=== PATIENT | male | born 1945 | race Caucasian/White ===

== ENCOUNTER 2017-04-03 14:55 | Emergency (ER) | payer MEDICARE, OTHER ==
[2017-04-03 15:33] VITALS: BP 147/95
[2017-04-03] MEDS ORDERED: Bacitracin Oint 1 GM U/D Packet TOP ONE (16:41)
--- NOTE | 2017-04-03 16:41 | EDM.PDOC ---
ED HPI GENERAL MEDICAL PROBLEM - General Chief Complaint: Laceration Stated Complaint: LEFT THUMB LACERATION Time Seen by Provider: 04/03/17 16:28 Source of Information: Reports: Patient History Limitations: Reports: No Limitations - History of Present Illness INITIAL COMMENTS - FREE TEXT/NARRATIVE: This gentleman caught his left thumb on a piece of metal shortly before arrival. He's new the cut was very small but he is taking one of the novel anticoagulants and was unable to get it to stop bleeding. Tetanus is up-to-date Left Hand Pain Score (Numeric/FACES): 2 - Related Data Allergies Allergy/AdvReac Type Severity Reaction Status Date / Time No Known Allergies Allergy Verified 04/03/17 15:40 Home Meds: Home Meds Hydrochlorothiazide 25 mg PO DAILY 10/27/14 [History] Loratadine [Claritin] 10 mg PO DAILY PRN 10/27/14 [History] Omeprazole [Prilosec] 20 mg PO DAILY 10/27/14 [History] Simvastatin [Zocor] 20 mg PO BEDTIME 10/27/14 [History] Tamsulosin [Flomax] 0.4 mg PO BEDTIME 10/27/14 [History] Topiramate 100 mg PO BID 10/27/14 [History] traZODone 100 mg PO BEDTIME 10/27/14 [History] Aspirin 81 mg PO DAILY 01/24/16 [History] Fosinopril Sodium 2.5 mg PO DAILY 01/24/16 [History] Potassium Citrate 10 meq PO TID 01/24/16 [History] Rivaroxaban [Xarelto] 20 mg PO DAILY 01/24/16 [History] Acetaminophen/oxyCODONE [Percocet 325-5 MG] 1 - 2 tab PO Q4H PRN #30 tablet 12/02 [Rx] Cholecalciferol (Vitamin D3) [Vitamin D] 5,000 unit PO DAILY 09/19/16 [History] Past Medical History HEENT History: Reports: Allergic Rhinitis, Cataract, Impaired Vision Cardiovascular History: Reports: Blood Clots/VTE/DVT, High Cholesterol, Hypertension Gastrointestinal History: Reports: GI Bleed, PUD Other Gastrointestinal History: bleeding ulcers Genitourinary History: Reports: Renal Calculus, Urinary Incontinence Musculoskeletal History: Reports: Arthritis, Back Pain, Chronic, Fracture Neurological History: Reports: Concussion, Headaches, Chronic, Head Trauma Psychiatric History: Reports: Anxiety, Depression, PTSD Endocrine/Metabolic History: Reports: Obesity/BMI 30+ Hematologic History: Reports: B12 Deficiency, Blood Transfusion(s) Oncologic (Cancer) History: Reports: Other (See Below) Other Oncologic History: Melanoma Dermatologic History: Reports: Other (See Below) Other Dermatologic History: melanoma - Infectious Disease History Infectious Disease History: Reports: Chicken Pox - Past Surgical History Head Surgeries/Procedures: Reports: None HEENT Surgical History: Reports: Adenoidectomy, Tonsillectomy, Other (See Below) GI Surgical History: Reports: Bariatric Procedure, Colonoscopy, Hernia, Inguinal Endocrine Surgical History: Reports: None Musculoskeletal Surgical History: Reports: Knee Replacement, Shoulder Replacement, Other (See Below) Other Musculoskeletal Surgeries/Procedures:: trigger point injections Oncologic Surgical History: Reports: Bone Marrow Aspiration Dermatological Surgical History: Reports: Plastic Surgical Reconstruction/Repair , Skin Graft Social & Family History - Family History Family Medical History: Noncontributory - Tobacco Use Smoking Status *Q: Never Smoker Second Hand Smoke Exposure: No - Caffeine Use Caffeine Use: Reports: Coffee - Recreational Drug Use Recreational Drug Use: No ED ROS GENERAL - Review of Systems Review Of Systems: ROS reveals no pertinent complaints other than HPI. ED EXAM, SKIN/RASH Exam: See Below Exam Limited By: No Limitations General Appearance: Alert, WD/WN, No Apparent Distress Extremities: Other (There is a small laceration actually a skin flap to the left thumb adjacent to the distal part of the thumbnail on the ulnar side of the thumb. Initially there is good hemostasis but it starts bleeding again when I examine it.) Neurological: No Motor/Sensory Deficits Course - Vital Signs Last Recorded V/S: Last Vital Signs Temp 36.3 C 04/03/17 15:38 Pulse 73 04/03/17 15:38 Resp 17 04/03/17 15:38 BP 147/95 H 04/03/17 15:38 Pulse Ox 93 L 04/03/17 15:38 - Re-Assessments/Exams Free Text/Narrative Re-Assessment/Exam: 04/03/17 16:39 The wound was cleaned some back situation ointment was applied followed by a pressure dressing Departure - Departure Time of Disposition: 16:39 Disposition: Home, Self-Care 01 Condition: Fair Clinical Impression: Laceration of left thumb - Discharge Information Referrals: Yousif Desai Sr, MD [Primary Care Provider] - Additional Instructions: Leave the dressing on for 2 days. Then you can remove it was very gently with soap and water but don't scrub it. That might start bleeding again apply a dab of antibiotic ointment and covered with a dressing. If it bleeds again then just put direct pressure on it for 30 minutes. If that doesn't stop the bleeding then come back to the ER or see your
== END 2017-04-03 17:02 | disposition home or self-care (01) ==
LOC: JP.ED 14:55
DX: S61.012A Laceration without foreign body of left thumb without damage to nail, initial encounter (principal); I10 Essential (primary) hypertension; E78.00 Pure hypercholesterolemia, unspecified; F32.9 Major depressive disorder, single episode, unspecified; Z79.01 Long term (current) use of anticoagulants; Z79.82 Long term (current) use of aspirin; Z79.899 Other long term (current) drug therapy; W45.8XXA Other foreign body or object entering through skin, initial encounter
CPT/HCPCS: 99282; 99283

== ENCOUNTER 2017-06-20 06:16 | Day surgery (SDC) | payer MEDICARE, OTHER ==
[2017-06-20] MEDS ORDERED: Midazolam 1 MG/ML 2 ML SDV ONE (07:16)
[2017-06-20] MEDS ORDERED: Propofol 200 MG/20 ML SDV ONE (07:16)
[2017-06-20] MEDS ORDERED: fentaNYL 100 MCG/2 ML SDV ONE (07:16)
[2017-06-20] MEDS ORDERED: Sodium Chloride 0.9% 1,000 ML IV SCH ×2 (07:30)
[2017-06-20 09:40] VITALS: BP 110/69
--- NOTE | 2017-06-20 11:09 | PROC ---
DATE OF PROCEDURE: 06/20/2017 INDICATION: Jeffy is a 72-year-old male who comes in for a colonoscopy. He does have a history of polyps in the past and has a strong family history of colonic cancer. PROCEDURE IN DETAIL: The risks and benefits were explained to the patient and was taken to the OR. Anesthesia was given by nurse strategic communications specialist. During the procedure, we used 2 mg of Versed, 1 mL of fentanyl and 200 mcg of propofol. The Olympus 180L scope was used. With a gloved finger, the rectum was examined and the prostate was a grade 3/6, symmetrical, and soft. The tube was placed into the rectum and advanced under direct vision. There was a borderline prep but we did get adequate observation throughout the entire colon. We did get to the cecum. Upon retraction of the tube, we noted a small polyp right by the hepatic flexure. This was biopsied. We got good observation of the rest of the colon. No obvious abnormality was known. The tube was removed. The patient tolerated the procedure well. PREOPERATIVE DIAGNOSES: History of polyps, family history of cancer. POSTOPERATIVE DIAGNOSIS: A small polyp noted by the hepatic flexure. Biopsy was done. Routine screening should be done for this gentleman every 3-5 years because of his history and his family history. Yousif Desai MD /[id number]
== END 2017-06-20 09:42 | disposition home or self-care (01) ==
LOC: JP.SDS 06:16
PROVIDERS: ATTEND Internal Medicine
DX: Z12.11 Encounter for screening for malignant neoplasm of colon (principal); D12.3 Benign neoplasm of transverse colon; I25.10 Atherosclerotic heart disease of native coronary artery without angina pectoris; I10 Essential (primary) hypertension; F41.9 Anxiety disorder, unspecified; Z86.010 Personal history of colon polyps; Z80.0 Family history of malignant neoplasm of digestive organs
CPT/HCPCS: 45380; 88305; J2250; J2704; J3010; J7040

== ENCOUNTER 2018-05-27 05:22 | Day surgery (SDC) | payer MEDICARE, OTHER ==
[2018-05-27] MEDS ORDERED: Acetaminophen 500 MG Tab PO ONE (06:00)
[2018-05-27] MEDS ORDERED: ceFAZolin 2 GM in Premix Bag 1 BAG IV ONE (06:00)
[2018-05-27] MEDS: Dextrose 5%-Lactated Ringers 1,000 ML IV SCH ×3 (06:13→23:09)
[2018-05-27] MEDS ORDERED: Lidocaine 1% with EPINEPHrine 1:100,000 50 ML MDV ONE (06:34)
[2018-05-27] MEDS ORDERED: Bupivacaine 0.5% 30 ML SDV ONE (06:35)
[2018-05-27] MEDS ORDERED: fentaNYL 250 MCG/5 ML SDV ONE (07:08)
[2018-05-27] MEDS ORDERED: Ondansetron 4 MG/2 ML SDV ONE (07:09)
[2018-05-27] MEDS ORDERED: Neostigmine Methylsulfate 1 MG/ML 5 ML Syringe ONE (07:09)
[2018-05-27] MEDS ORDERED: Propofol 200 MG/20 ML SDV ONE (07:09)
[2018-05-27] MEDS ORDERED: Dexamethasone 4 MG/ML SDV ONE (07:09)
[2018-05-27] MEDS ORDERED: Rocuronium 50 MG/5 ML Vial ONE (07:09)
[2018-05-27] MEDS ORDERED: Glycopyrrolate 0.2 MG/ML 5 ML MDV ONE (07:09)
[2018-05-27] MEDS ORDERED: Bupivacaine 0.5%/EPINEPHrine 1:200,000 50 ML MDV ONE (07:33)
[2018-05-27] MEDS ORDERED: ePHEDrine 50 MG/ML SDV ONE (07:44)
[2018-05-27] MEDS ORDERED: Ketorolac 60 MG/2 ML SDV ONE (08:14)
[2018-05-27] MEDS ORDERED: Ondansetron 4 MG/2 ML SDV IVPUSH PRN (09:34)
[2018-05-27] MEDS ORDERED: traZODone 50 MG Tab PO PRN (09:36)
[2018-05-27] MEDS ORDERED: Loratadine 10 MG Tab PO PRN (09:37)
[2018-05-27] MEDS ORDERED: Acetaminophen/oxyCODONE 325-5 MG Tab PO PRN (09:39)
[2018-05-27] MEDS ORDERED: Rivaroxaban 10 MG Tab PO ONE (13:00)
[2018-05-27] MEDS: ceFAZolin 2 GM in Premix Bag 1 BAG IV SCH ×2 (13:41→21:35)
[2018-05-27] MEDS ORDERED: Tamsulosin 0.4 MG Cap.ER PO SCH (21:00)
[2018-05-27] MEDS ORDERED: Escitalopram 10 MG Tab PO SCH (21:00)
[2018-05-27] MEDS ORDERED: Simvastatin 20 MG Tab PO SCH (21:00)
[2018-05-27] MEDS: Topiramate 100 MG Tab PO SCH (21:34)
[2018-05-28] MEDS: ceFAZolin 2 GM in Premix Bag 1 BAG IV SCH (06:04)
[2018-05-28 07:24] VITALS: BP 122/69
[2018-05-28] MEDS ORDERED: Pantoprazole 40 MG Tab.CR PO SCH (07:30)
[2018-05-28] MEDS: Topiramate 100 MG Tab PO SCH (08:55)
[2018-05-28] MEDS ORDERED: FOSINOPRIL 10 MG PO SCH (09:00)
[2018-05-28] MEDS ORDERED: Hydrochlorothiazide 25 MG Tab PO SCH (09:00)
--- NOTE | 2018-05-28 09:19 | DISCH ---
ADMISSION DIAGNOSES: 1. Left inguinal hernia. 2. History of deep vein thrombosis. 3. Degenerative arthritis. 4. Chronic renal failure. 5. Essential hypertension. DISCHARGE DIAGNOSES: Exploration of left groin with repair of recurrent incarcerated incisional hernia with mesh, repair of recurrent trocar hernia with mesh, and division of left ilioinguinal nerve for recurrent incarcerated incisional hernia, adjacent and previous mesh plug at panniculectomy site and incarcerated left recurrent incisional hernia, ilioinguinal nerve at site of scar entrapment. Date of surgery: 05/27/2018. Surgeon: Karel Holder MD. HISTORY: Jeffy Castro is a 73-year-old male with recurrent right inguinal hernia. After preoperative evaluation and discussion of possible risks and possible complications, he wished to proceed with surgical procedure. HOSPITAL COURSE: Jeffy had his surgery on 05/27/2018. He had no operative complications. On postoperative day #1, he was ready to be discharged to home. Vital signs stable. Pain was managed on Tylenol. He refused anything stronger for pain as in Percocet. Activity was good. Vital signs stable. REVIEW OF SYSTEMS: Remainder of review of systems negative for any pertinent positives and negatives. OBJECTIVE: GENERAL: Jeffy Castro is a 73-year-old male. VITAL SIGNS: Height is 6 feet, weight is 270, TPR is 97.4, 66, 18, blood pressure 122/69. HEENT: Negative. NECK: Supple. HEART: Regular rate and rhythm. LUNGS: Clear. ABDOMEN: Dressings dry and intact. Abdominal binder is on. EXTREMITIES: Without peripheral edema. DISPOSITION: Discharged to home. CONDITION: Stable and improving. FOLLOWUP: Followup appointment with Karel Holder MD on 06/04/2018 at 8:00 a.m. [facility] an [facility] at 7:45, so may be a little late. HOME MEDICATIONS: He is to continue his home medications. No new prescriptions were prescribed. Declined Percocet, which was ordered for pain. He is to resume home medications; 1. Aspirin 81 mg daily. 2. Calcium citrate with vitamin D one oral 4 times a day. 3. Lexapro 10 mg oral at bedtime. 4. Fosinopril sodium 2.5 mg oral daily. 5. Hydrochlorothiazide 25 mg oral daily. 6. Claritin 10 mg oral daily. 7. Omeprazole 20 mg oral daily. 8. Potassium citrate 20 mEq oral 3 times a day. 9. Xarelto 20 mg oral daily. 10.Zocor 20 mg oral at bedtime. 11.Flomax 0.4 mg oral at bedtime. 12.Topiramate 100 mg oral twice daily. 13.Trazodone 100 mg at bedtime. DIET: Usual diet as tolerated. Drink 8 to 10 glasses of water a day. ACTIVITY: As tolerated. No lifting greater than 10 pounds for 6 weeks. Driving: Do not drive for 1 week and while on pain medication. Shower/bathing, may shower. DISCHARGE INSTRUCTIONS: Notify provider if any fever, increased pain, nausea, or vomiting. Keep site clean and dry. Wound incision; take dressing off on , 05/29/2018. Recommend wearing athletic supporter to prevent dependent swelling. SPECIAL INSTRUCTIONS: Use incentive spirometer 10 times every hour while awake.
--- NOTE | 2018-06-02 14:00 | OR ---
DATE OF PROCEDURE: 05/27/2018 PREOPERATIVE DIAGNOSIS: Recurrent left inguinal hernia. POSTOPERATIVE DIAGNOSES: 1. Recurrent incarcerated left inguinal hernia. 2. Recurrent incarcerated incisional hernia. 3. Ilioinguinal nerve at risk for scar entrapment and postoperative chronic pain. OPERATIVE PROCEDURES: Exploration of left groin with: 1. Repair of recurrent incarcerated incisional hernia with mesh (07554, [id number]). 2. Repair of recurrent incarcerated inguinal hernia with mesh ([id number]). 3. Division of the left ilioinguinal nerve ([id number]). ANESTHESIA: General. REIMBURSEMENT COUNSELOR: Germaine Justice PA-C. INDICATIONS FOR PROCEDURE: The patient presents with onset of an inguinal hernia on the left side. This appears by history to have been previously repaired. The patient appeared to have two defects; one is on the area of the inguinal floor and other one somewhat superior to that and slightly lateral to the inguinal floor along the previous Pfannenstiel incision suggestive of a possible separate incisional hernia as well. The plan is to proceed with a left groin exploration and repair of the hernias with mesh as indicated. Potential risks including bleeding, infection, recurrence of the hernia, problems with the mesh becoming infected, chronic pain following the hernia repair and such were all reviewed, and the patient wishes to proceed. DETAILS OF PROCEDURE: The patient was taken to operating room where he was placed in a supine position. After general endotracheal anesthesia was induced, the abdomen and groin areas were prepped and draped. The previous left inguinal incision was then reused and carried down through the skin and subcutaneous tissue and through the external oblique aponeurosis. The cord structures were then identified and dissected free along the area of the inguinal floor. As one dissected in this area, the patient appeared to have a direct inguinal hernia medially, which had an incarcerated component consisting of some lateral fat prolapsing along with the hernia sac in the direction somewhat over the area of Patricio ligament. Further dissection revealed a separate hernia superior to the internal ring along the area of the Pfannenstiel incision consistent with a recurrence of the hernia in that area as well. There was mesh placed in both locations previously. At this point, transversalis fascia over the medial aspect was divided and this allowed reduction of the inguinal hernia. An extra large mesh plug was then placed into that defect and then affixed to the Patricio ligament with titanium tacking screws inferiorly and to the underside of the conjoined tendon medially, superiorly, and inferiorly with horizontal mattress sutures of 0 Vicryl stitch. The conjoined tendon was then sutured down to the shelving portion of the inguinal ligament with a running 0 Vicryl stitch as well to the point where the internal ring was tightened up just to the side allowing the comfortable passage of the cord structures. The defect superior to the internal ring consistent with an incisional hernia was then similarly divided at the transversalis fascia level. This contained a small amount of omentum prolapsing into it, which was then reduced, and into this defect, a medium mesh plug was placed. This is a fairly small hernia with a small tongue above the omentum prolapsing into the hernia. This was affixed circumferentially with horizontal mattress sutures of 0 Vicryl stitch as well, and at that point, no further problems noted. The ilioinguinal nerve was noted to course across the area of the inguinal floor and the flat portion of mesh plug system was placed there after division of the nerve in the far lateral aspect of the area of dissection to minimize chances of postop neuropathic pain. The medial aspect of the flat portion of the mesh plug system was affixed with titanium tacking screw to the pubic tubercle and sutured lateral to the cord structure with 3-0 Vicryl stitch. The external oblique aponeurosis was approximated with 3-0 Vicryl stitch as was subcutaneous tissue and the skin closed with coral. The area was anesthetized with 0.5% Marcaine and dressing applied. The patient was taken to the recovery room in satisfactory condition. There were no other complications. Physician melter assistant, Germaine Justice PA-C, played an essential role in assisting in this case, helping to position the patient, retract structures as needed, as well as suturing and cutting suture as indicated. Her presence improved patient safety and decreased the operative time. Karel Holder MD /[id number]
== END 2018-05-28 11:42 | disposition home or self-care (01) ==
LOC: JP.SDS 05:22 → JP.MS 08:45 → JP.SDS 05-28 11:42
PROVIDERS: ATTEND Surgery
DX: K40.31 Unilateral inguinal hernia, with obstruction, without gangrene, recurrent (principal); K43.0 Incisional hernia with obstruction, without gangrene; I12.9 Hypertensive chronic kidney disease with stage 1 through stage 4 chronic kidney disease, or unspecified chronic kidney disease; N18.9 Chronic kidney disease, unspecified; E66.9 Obesity, unspecified; E78.5 Hyperlipidemia, unspecified; G47.33 Obstructive sleep apnea (adult) (pediatric); Z99.89 Dependence on other enabling machines and devices; I70.213 Atherosclerosis of native arteries of extremities with intermittent claudication, bilateral legs; F32.9 Major depressive disorder, single episode, unspecified; Z79.82 Long term (current) use of aspirin; Z79.01 Long term (current) use of anticoagulants; Z79.899 Other long term (current) drug therapy
CPT/HCPCS: 49521; 49566; 49568; 64772; 88302; 94762; A9270; C1781; J0690; J1100; J1885; J2405; J2704; J2710; J3010; J3490; J7042

== ENCOUNTER 2019-05-10 18:39 | Emergency (ER) | payer MEDICARE, OTHER ==
--- NOTE | 2019-05-10 18:56 | EDM.PDOC ---
ED HPI GENERAL MEDICAL PROBLEM - General Chief Complaint: Lower Extremity Injury/Pain Stated Complaint: FELL HURT KNEES Time Seen by Provider: 05/10/19 18:54 Source of Information: Reports: Patient History Limitations: Reports: No Limitations - History of Present Illness INITIAL COMMENTS - FREE TEXT/NARRATIVE: pt tripped on his shoe laces and he injured his knee. He has ptsd and normally has a service dog. He had to put the dog down 3 weeks ago. He really does not like to be in closed spaces and will try to provide a larger room and a open door. Onset: Today, Sudden Duration: Hour(s): Location: Reports: Upper Extremity, Left, Lower Extremity, Right Associated Symptoms: Reports: No Other Symptoms Right Knee Pain Score (Numeric/FACES): 6 - Related Data Allergies Allergy/AdvReac Type Severity Reaction Status Date / Time No Known Allergies Allergy Verified 05/10/19 19:12 Home Meds: Home Meds Hydrochlorothiazide 25 mg PO DAILY 10/27/14 [History] Loratadine [Claritin] 10 mg PO DAILY PRN 10/27/14 [History] Omeprazole [Prilosec] 20 mg PO DAILY 10/27/14 [History] Simvastatin [Zocor] 20 mg PO BEDTIME 10/27/14 [History] Tamsulosin [Flomax] 0.4 mg PO BEDTIME 10/27/14 [History] Topiramate 100 mg PO BID 10/27/14 [History] traZODone 100 mg PO BEDTIME PRN 10/27/14 [History] Aspirin 81 mg PO DAILY 01/24/16 [History] Potassium Citrate 20 meq PO TID 01/24/16 [History] Rivaroxaban [Xarelto] 20 mg PO DAILY 01/24/16 [History] Cholecalciferol (Vitamin D3) [Vitamin D] 2,000 unit PO DAILY 09/19/16 [History] Calcium Citrate/Vitamin D3 [Calcium Citrate + D] 1 tab PO QID 06/18/17 [History] Escitalopram [Lexapro] 10 mg PO BEDTIME 05/14/18 [History] Past Medical History HEENT History: Reports: Allergic Rhinitis, Cataract, Impaired Vision Cardiovascular History: Reports: Blood Clots/VTE/DVT, High Cholesterol, Hypertension, PA Respiratory History: Reports: Sleep Apnea Gastrointestinal History: Reports: Colon Polyp, GI Bleed, Hiatal Hernia, PUD Other Gastrointestinal History: bleeding ulcers Genitourinary History: Reports: Renal Calculus, Urinary Incontinence, Other ( See Below) Other Genitourinary History: prostate ca Musculoskeletal History: Reports: Arthritis, Back Pain, Chronic, Fracture Neurological History: Reports: Concussion, Headaches, Chronic, Head Trauma Psychiatric History: Reports: Anxiety, Depression, PTSD Endocrine/Metabolic History: Reports: Obesity/BMI 30+ Hematologic History: Reports: B12 Deficiency, Blood Transfusion(s) Oncologic (Cancer) History: Reports: Prostate, Other (See Below) Other Oncologic History: Melanoma Dermatologic History: Reports: Other (See Below) Other Dermatologic History: pt. thinks has hx of melanoma - Infectious Disease History Infectious Disease History: Reports: Chicken Pox, Measles - Past Surgical History Head Surgeries/Procedures: Reports: None HEENT Surgical History: Reports: Adenoidectomy, Tonsillectomy, Other (See Below) Cardiovascular Surgical History: Reports: None Respiratory Surgical History: Reports: None GI Surgical History: Reports: Bariatric Procedure, Colonoscopy, EGD, Hernia, Inguinal, Neil Fundoplication Male Surgical History: Reports: Lithotripsy ([facility]) Endocrine Surgical History: Reports: None Neurological Surgical History: Reports: None Musculoskeletal Surgical History: Reports: Knee Replacement, Shoulder Replacement, Other (See Below) Other Musculoskeletal Surgeries/Procedures:: trigger point injections Oncologic Surgical History: Reports: Bone Marrow Aspiration Dermatological Surgical History: Reports: Plastic Surgical Reconstruction/Repair , Skin Graft Social & Family History - Family History Family Medical History: Noncontributory - Caffeine Use Caffeine Use: Reports: Coffee Review of Systems - Review of Systems Review Of Systems: See Below Constitutional: Reports: No Symptoms Eyes: Reports: No Symptoms Ears: Reports: No Symptoms Nose: Reports: No Symptoms Mouth/Throat: Reports: No Symptoms Respiratory: Reports: No Symptoms Cardiovascular: Reports: No Symptoms GI/Abdominal: Reports: No Symptoms Genitourinary: Reports: No Symptoms Musculoskeletal: Reports: Other (pt has pain in the rt knee and there appears to be some swelling. He has no discoloration. He has some tenderness in the left shoulder but he has no swelling. ) Skin: Reports: No Symptoms Neurological: Reports: No Symptoms Psychiatric: Reports: Anxiety ED EXAM, GENERAL - Physical Exam Exam: See Below Free Text/Narrative:: pt arrived having pain in his rt knee. As he has been here longer it has gotten better. He does not wish any pain meds. Exam Limited By: No Limitations General Appearance: Alert, Anxious, Mild Distress, Other (pupils are equal and reactive. ) Ears: Normal TMs Nose: Normal Inspection Throat/Mouth: Normal Inspection Head: Atraumatic Neck: Normal Inspection Respiratory/Chest: No Respiratory Distress Cardiovascular: Regular Rate, Rhythm Extremities: Other (pt has soft tissue swelling. he has no fractures on xray. The total joint looks good. He does have some soft tissue swelling. ) Course - Vital Signs Last Recorded V/S: Last Vital Signs Temp 36.7 C 05/10/19 19:02 Pulse 78 05/10/19 19:02 Resp 14 05/10/19 19:02 BP 129/68 05/10/19 19:02 Pulse Ox 95 05/10/19 19:02 - Re-Assessments/Exams Free Text/Narrative Re-Assessment/Exam: 05/10/19 20:38 xray was done of the knee which does not reveal any fractes. The componets of the total knee appear to be in place. He is having pain but it is better at this time. He was offer pain meds but he does not want to use these. 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 He is on xarelto. He is willing to ice pack the knee. Departure - Departure Time of Disposition: 20:40 Disposition: Home, Self-Care 01 Condition: Fair Clinical Impression: Contusion of right knee, Sprain of left shoulder - Discharge Information Instructions: Contusion Referrals: Yousif Desai Sr, MD [Primary Care Provider] - Forms: ED Department Discharge Care Plan Goals: cool pack to the lrft knee rigorously. He can use tylenol for pain, Pt should cool pack the left shoulder and do range of motion. pt does have some soft tissue swelling. Sepsis Event Note - Focused Exam Date Exam was Performed: 05/13/19 Time Exam was Performed: 07:45
[2019-05-10 19:02] VITALS: BP 129/68; PULSE 78
--- NOTE | 2019-05-10 20:29 | CRLCR ---
Indication: Pain and swelling right knee. Technique: Right knee five views. Comparison: 09/24/2014. Findings: Right knee arthroplasty is unchanged in appearance. No evidence of acute fracture or hardware complication. No additional osseous abnormality. Calcifications in the region of the quadriceps tendon are unchanged. There is new prepatellar soft tissue swelling. No soft tissue gas or radiopaque foreign body evident. Impression: 1. No evidence of acute fracture or hardware complication. 2. New prepatellar soft tissue swelling may be infectious or inflammatory in the appropriate clinical setting. Dictated by Cesar Blanca MD @ May 10 2019 8:25PM Signed by Dr. Cesar Blanca @ May 10 2019 8:27PM
== END 2019-05-10 21:00 | disposition home or self-care (01) ==
LOC: JP.ED 18:39
DX: S43.402A Unspecified sprain of left shoulder joint, initial encounter (principal); S80.01XA Contusion of right knee, initial encounter; I10 Essential (primary) hypertension; I25.2 Old myocardial infarction; E78.00 Pure hypercholesterolemia, unspecified; E66.9 Obesity, unspecified; F32.9 Major depressive disorder, single episode, unspecified; Z79.899 Other long term (current) drug therapy; Z68.36 Body mass index [BMI] 36.0-36.9, adult; Z85.46 Personal history of malignant neoplasm of prostate; Z85.820 Personal history of malignant melanoma of skin; Z79.82 Long term (current) use of aspirin; W18.40XA Slipping, tripping and stumbling without falling, unspecified, initial encounter
CPT/HCPCS: 73564-RT; 99283; 99283-25

== ENCOUNTER 2019-06-20 12:12 | Emergency (ER) | payer MEDICARE, OTHER ==
--- NOTE | 2019-06-20 13:25 | EDM.PDOC ---
ED HPI GENERAL MEDICAL PROBLEM - General Chief Complaint: Lower Extremity Injury/Pain Stated Complaint: PAIN IN LOWER LT LEG Time Seen by Provider: 06/20/19 12:50 Source of Information: Reports: Patient History Limitations: Reports: No Limitations - History of Present Illness INITIAL COMMENTS - FREE TEXT/NARRATIVE: 74-year-old male with lower left leg pain. He has a worsening hematoma on the lateral aspect of the lower leg over the [place], and he wanted it checked. He saw orthopedics 2 days ago for an issue of his other leg, and was told that the bruised area should be improving or should be checked. It is more painful today and he thinks more swollen and tight as well, it was painful to get his compression stockings on today. It is also painful with walking. Onset: Gradual Duration: Day(s): (Swelling, pain and bruising over the past 3 to 4 days) Location: Reports: Lower Extremity, Left Quality: Reports: Burning, Pressure, Throbbing Worsens with: Reports: Other (Weightbearing or palpation of the bruised area), Movement Left Leg Pain Score (Numeric/FACES): 9 - Related Data Allergies Allergy/AdvReac Type Severity Reaction Status Date / Time No Known Allergies Allergy Verified 06/20/19 12:47 Home Meds: Home Meds Hydrochlorothiazide 25 mg PO DAILY 10/27/14 [History] Loratadine [Claritin] 10 mg PO DAILY PRN 10/27/14 [History] Omeprazole [Prilosec] 20 mg PO DAILY 10/27/14 [History] Simvastatin [Zocor] 20 mg PO BEDTIME 10/27/14 [History] Tamsulosin [Flomax] 0.4 mg PO BEDTIME 10/27/14 [History] Topiramate 100 mg PO BID 10/27/14 [History] traZODone 100 mg PO BEDTIME PRN 10/27/14 [History] Aspirin 81 mg PO BEDTIME 01/24/16 [History] Potassium Citrate 20 meq PO TID 01/24/16 [History] Rivaroxaban [Xarelto] 20 mg PO DAILY 01/24/16 [History] Cholecalciferol (Vitamin D3) [Vitamin D] 2,000 unit PO DAILY 09/19/16 [History] Calcium Citrate/Vitamin D3 [Calcium Citrate + D] 1 tab PO QID 06/18/17 [History] Escitalopram [Lexapro] 10 mg PO BEDTIME 05/14/18 [History] Past Medical History HEENT History: Reports: Allergic Rhinitis, Cataract, Impaired Vision Cardiovascular History: Reports: Blood Clots/VTE/DVT, High Cholesterol, Hypertension, [place] Other Cardiovascular History: Heart monitor implanted Respiratory History: Reports: Sleep Apnea Gastrointestinal History: Reports: Colon Polyp, GI Bleed, Hiatal Hernia, PUD Other Gastrointestinal History: bleeding ulcers Genitourinary History: Reports: Renal Calculus, Urinary Incontinence, Other ( See Below) Other Genitourinary History: prostate ca Musculoskeletal History: Reports: Arthritis, Back Pain, Chronic, Fracture Other Musculoskeletal History: R knee pain Neurological History: Reports: Concussion, Headaches, Chronic, Head Trauma Other Neuro History: "PTSD Stroke" Psychiatric History: Reports: Anxiety, Depression, PTSD Endocrine/Metabolic History: Reports: Obesity/BMI 30+ Hematologic History: Reports: B12 Deficiency, Blood Transfusion(s) Oncologic (Cancer) History: Reports: Prostate, Other (See Below) Other Oncologic History: Melanoma Dermatologic History: Reports: Other (See Below) Other Dermatologic History: pt. thinks has hx of melanoma - Infectious Disease History Infectious Disease History: Reports: Chicken Pox, Measles - Past Surgical History Head Surgeries/Procedures: Reports: None HEENT Surgical History: Reports: Adenoidectomy, Tonsillectomy GI Surgical History: Reports: Bariatric Procedure, Colonoscopy, EGD, Hernia, Inguinal, Neil Fundoplication Male Surgical History: Reports: Lithotripsy (ESWL) Musculoskeletal Surgical History: Reports: Knee Replacement, Shoulder Replacement, Other (See Below) Other Musculoskeletal Surgeries/Procedures:: trigger point injections Oncologic Surgical History: Reports: Bone Marrow Aspiration Dermatological Surgical History: Reports: Plastic Surgical Reconstruction/Repair , Skin Graft Social & Family History - Family History Family Medical History: Noncontributory - Tobacco Use Smoking Status *Q: Never Smoker - Caffeine Use Caffeine Use: Reports: Coffee - Recreational Drug Use Recreational Drug Use: No Review of Systems - Review of Systems Review Of Systems: See Below Constitutional: Denies: Fever Respiratory: Denies: Shortness of Breath, Cough Cardiovascular: Denies: Chest Pain Genitourinary: Reports: No Symptoms Neurological: Denies: Headache Psychiatric: Reports: No Symptoms ED EXAM, GENERAL - Physical Exam Exam: See Below Exam Limited By: No Limitations General Appearance: Alert, No Apparent Distress Head: Atraumatic Respiratory/Chest: No Respiratory Distress GI/Abdominal: Non-Tender Extremities: Other (Exam of the lower extremities reveals diffuse bilateral pitting edema, however the left lower leg over the lateral marina has a 5 x 5 cm raised, bluish, bruised slightly fluctuant but tight hematoma formation. There is some surrounding warmth and erythema.) Course - Vital Signs Last Recorded V/S: Last Vital Signs Temp 97.1 F 06/20/19 12:44 Pulse 60 06/20/19 12:44 Resp 16 06/20/19 12:44 BP 142/74 H 06/20/19 12:44 Pulse Ox 98 06/20/19 12:44 - Re-Assessments/Exams Free Text/Narrative Re-Assessment/Exam: 06/20/19 14:34 Discussed this with surgery, and evacuation of the hematoma can be planned for 2 to 3 days if not improving. 6 inch Silvio wraps were applied to the lower extremity, patient was encouraged to elevate the leg, keep pressure with Silvio wraps, and was placed on cephalexin 500 mg 3 times a day for 5 days. He will return tomorrow if worsening despite treatment, otherwise recheck with Dr. Desai on Saturday to discuss whether surgical consultation will be necessary at that time. Departure - Departure Time of Disposition: 14:00 Disposition: Home, Self-Care Clinical Impression: Hematoma of left lower extremity Qualifiers: Encounter type: initial encounter Qualified Code(s): S80.12XA - Contusion of left lower leg, initial encounter - Discharge Information Instructions: Hematoma, [id number] Referrals: Yousif Desai Sr, MD [Primary Care Provider] - Forms: ED Department Discharge Care Plan Goals: Continue pressure with an Silvio wrap, take antibiotics as prescribed and elevate leg when able. Recheck on Saturday if not improving satisfactorily. Sepsis Event Note - Evaluation Sepsis Screening Result: No Definite Risk - Focused Exam Vital Signs: Vital Signs Temp Pulse Resp BP Pulse Ox 06/20/19 12:44 97.1 F 60 16 142/74 H 98 Date Exam was Performed: 06/20/19 Time Exam was Performed: 14:31
== END 2019-06-20 14:00 | disposition home or self-care (01) ==
LOC: JP.ED 12:12
CPT/HCPCS: 99282; 99283

== ENCOUNTER 2020-05-09 07:37 | Emergency (ER) | payer MEDICARE, OTHER ==
[2020-05-09 08:09] VITALS: BP 129/68; PULSE 60
--- NOTE | 2020-05-09 08:12 | EDM.PDOC ---
ED HPI GENERAL MEDICAL PROBLEM - General Chief Complaint: Lower Extremity Injury/Pain Stated Complaint: KNEE PAIN Time Seen by Provider: 05/09/20 08:10 Source of Information: Reports: Patient History Limitations: Reports: No Limitations - History of Present Illness INITIAL COMMENTS - FREE TEXT/NARRATIVE: 75-year-old male with a history of bilateral total knee replacement, was out walking his dog this morning when he heard a crack and started having significant pain in the left knee. He had several other episodes of pain over the past 4 days but this 1 was the most intense, it is painful to bear weight or lift the leg. He has not fallen. He has developed bruising along the inside of the knee. Onset: Sudden (About 1 hour ago was the crack and increased pain, bruising for the last 3 to 4 days) Location: Reports: Lower Extremity, Left Left Knee Pain Score (Numeric/FACES): 8 - Related Data Allergies Allergy/AdvReac Type Severity Reaction Status Date / Time No Known Allergies Allergy Verified 05/09/20 07:46 Home Meds: Home Meds Loratadine [Claritin] 10 mg PO DAILY PRN 10/27/14 [History] Omeprazole [Prilosec] 20 mg PO DAILY 10/27/14 [History] Simvastatin [Zocor] 20 mg PO BEDTIME 10/27/14 [History] Tamsulosin [Flomax] 0.4 mg PO BEDTIME 10/27/14 [History] Topiramate 100 mg PO BID 10/27/14 [History] traZODone 50 mg PO BEDTIME PRN 10/27/14 [History] Aspirin 81 mg PO BEDTIME 01/24/16 [History] Potassium Citrate 20 meq PO TID 01/24/16 [History] Rivaroxaban [Xarelto] 20 mg PO DAILY 01/24/16 [History] Calcium Citrate/Vitamin D3 [Calcium Citrate + D] 1 tab PO QID 06/18/17 [History] Escitalopram [Lexapro] 20 mg PO BEDTIME 05/14/18 [History] Cyanocobalamin (Vitamin B-12) [Vitamin B-12] 1,000 mcg SL DAILY 02/04/20 [History] Ferrous Gluconate [Iron] 65 mg PO DAILY 05/09/20 [History] Past Medical History HEENT History: Reports: Allergic Rhinitis, Cataract, Impaired Vision Cardiovascular History: Reports: Blood Clots/VTE/DVT, High Cholesterol, Hypertension, [place] Other Cardiovascular History: Heart monitor implanted Respiratory History: Reports: Sleep Apnea Gastrointestinal History: Reports: Colon Polyp, GI Bleed, Hiatal Hernia, PUD Other Gastrointestinal History: bleeding ulcers Genitourinary History: Reports: Renal Calculus, Urinary Incontinence, Other (See Below) Other Genitourinary History: prostate ca Musculoskeletal History: Reports: Arthritis, Back Pain, Chronic, Fracture, Other (See Below) Other Musculoskeletal History: R knee pain. left knee pain. bilateral shoulder pain. states knees would buckle in PT. bilat leg weakness Neurological History: Reports: Concussion, Headaches, Chronic, Head Trauma Other Neuro History: "PTSD Stroke" Psychiatric History: Reports: Anxiety, Depression, PTSD Endocrine/Metabolic History: Reports: Obesity/BMI 30+ Hematologic History: Reports: B12 Deficiency, Blood Transfusion(s) Oncologic (Cancer) History: Reports: Prostate, Other (See Below) Other Oncologic History: Melanoma Dermatologic History: Reports: Other (See Below) Other Dermatologic History: pt. thinks has hx of melanoma - Infectious Disease History Infectious Disease History: Reports: Chicken Pox, Measles - Past Surgical History Head Surgeries/Procedures: Reports: None HEENT Surgical History: Reports: Adenoidectomy, Tonsillectomy Cardiovascular Surgical History: Reports: None Respiratory Surgical History: Reports: None GI Surgical History: Reports: Bariatric Procedure, Colonoscopy, EGD, Hernia, Inguinal, Neil Fundoplication Male Surgical History: Reports: Lithotripsy (ESWL) Endocrine Surgical History: Reports: None Neurological Surgical History: Reports: None Oncologic Surgical History: Reports: Bone Marrow Aspiration Dermatological Surgical History: Reports: Plastic Surgical Reconstruction/Repair, Skin Graft Social & Family History - Family History Family Medical History: No Pertinent Family History - Caffeine Use Caffeine Use: Reports: None Review of Systems - Review of Systems Review Of Systems: See Below Constitutional: Denies: Fever Respiratory: Reports: No Symptoms Cardiovascular: Reports: No Symptoms GI/Abdominal: Denies: Nausea, Vomiting Skin: Reports: Bruising Neurological: Denies: Headache, Weakness Psychiatric: Reports: Other (Severe PTSD) ED EXAM, GENERAL - Physical Exam Exam: See Below Exam Limited By: No Limitations General Appearance: Alert, No Apparent Distress (Fairly comfortable while lying supine) Respiratory/Chest: No Respiratory Distress Extremities: Other (Lower extremities are examined, there is no swelling around the left knee compared to the right but there is bruising along the medial distal thigh and knee. He is very point tender to palpation just above the knee especially laterally, with increased pain with valgus stress to the knee.) Neurological: Alert, Oriented Skin Exam: Other (Bruising as described above) Course - Vital Signs Last Recorded V/S: Last Vital Signs Temp 97.6 F 05/09/20 08:08 Pulse 60 05/09/20 08:08 Resp 16 05/09/20 08:08 BP 129/68 05/09/20 08:08 Pulse Ox 96 05/09/20 08:08 - Re-Assessments/Exams Free Text/Narrative Re-Assessment/Exam: 05/09/20 08:33 A left knee x-ray was obtained. 05/09/20 08:50 X-ray shows the total knee in its proper position, no acute bony injury seen. A 6 inch Silvio wrap was applied to the knee, he was given 15 tramadol for extra pain control and orthopedics will be consulted to recheck the patient later this week if possible. He was able to bear weight and pivot on his leg but it continues to be very painful. Departure - Departure Time of Disposition: 09:06 Disposition: Home, Self-Care 01 Clinical Impression: Acute pain of left knee - Discharge Information Instructions: Acute Knee Pain, Adult Referrals: Yousif Desai Sr, MD [Primary Care Provider] - Forms: ED Department Discharge Care Plan Goals: Wear Silvio wrap on the knee for support, continue your regular medications and add tramadol for extra pain control if needed. I will ask the orthopedic clinic to call you with a recheck appointment time. Sepsis Event Note (ED) - Evaluation Sepsis Screening Result: No Definite Risk - Focused Exam Vital Signs: Vital Signs Temp Pulse Resp BP Pulse Ox 05/09/20 08:08 97.6 F 60 16 129/68 96
--- NOTE | 2020-05-09 11:19 | CR ---
Knee 3V Lt CLINICAL HISTORY: Pain FINDINGS: There is a 3 component total knee arthroplasty. Components appear well seated. There is a very tiny linear lucency through the medial tibial plateau just below the medial margin. This is of doubtful significance. Impression: Minimal linear lucency along the medial aspect of the tibial plateau. No this is of doubtful significance a repeat study within the should be performed if clinical symptomatology persists or worsens
== END 2020-05-09 09:06 | disposition home or self-care (01) ==
LOC: JP.ED 07:37
DX: M25.562 Pain in left knee (principal); I10 Essential (primary) hypertension; I25.2 Old myocardial infarction; E78.00 Pure hypercholesterolemia, unspecified; E66.9 Obesity, unspecified; F41.9 Anxiety disorder, unspecified; F32.9 Major depressive disorder, single episode, unspecified; Z90.49 Acquired absence of other specified parts of digestive tract; Z79.82 Long term (current) use of aspirin; Z79.899 Other long term (current) drug therapy; Z68.39 Body mass index [BMI] 39.0-39.9, adult
CPT/HCPCS: 73562-26-LT; 73562-LT; 99283-25

== ENCOUNTER 2020-05-23 08:42 | Inpatient (IN) | payer MEDICARE, OTHER ==
[~2020-05-23 08:42] MED LIST: Povidone-Iodine 10% Soln 118.25 ML Bottle ONE
[2020-05-23] MEDS ORDERED: Lactated Ringers 1,000 ML IV SCH (09:30)
[2020-05-23] MEDS: Nozin Nasal Sanitizer NASBOTH SCH ×2 (09:54→20:50)
[2020-05-23] MEDS ORDERED: Tranexamic Acid 1,000 MG in Sodium Chloride 0.9% 50 ML IV ONE (10:45)
[2020-05-23] MEDS ORDERED: Propofol 200 MG/20 ML SDV ONE ×6 (11:52→16:37)
[2020-05-23] MEDS ORDERED: Midazolam 1 MG/ML 2 ML SDV ONE ×2 (11:52→14:04)
[2020-05-23] MEDS ORDERED: fentaNYL 100 MCG/2 ML SDV ONE ×4 (11:52→16:13)
[2020-05-23] MEDS ORDERED: Tranexamic Acid 1,000 MG in Sodium Chloride 0.9% 50 ML IV PRN (13:30)
[2020-05-23] MEDS ORDERED: Lactated Ringers 1,000 ML ONE (15:09)
[2020-05-23] MEDS ORDERED: Acetaminophen/oxyCODONE 325-5 MG Tab PO PRN (16:58)
[2020-05-23] MEDS ORDERED: Ondansetron 4 MG/2 ML SDV IVPUSH PRN (16:58)
[2020-05-23] MEDS ORDERED: Morphine 2 MG/ML SYRINGE IVPUSH PRN (16:58)
[2020-05-23] MEDS ORDERED: Acetaminophen/HYDROcodone 325-5 MG Tab PO PRN ×2 (16:58→18:38)
[2020-05-23] MEDS ORDERED: Acetaminophen 325 MG Tab PO PRN (16:58)
[2020-05-23] MEDS ORDERED: Magnesium Hydroxide 400 MG/5 ML Susp 30 ML Cup PO PRN (16:58)
[2020-05-23] MEDS ORDERED: Ketorolac 30 MG/ML SDV IVPUSH SCH (17:00)
[2020-05-23] MEDS ORDERED: Loratadine 10 MG Tab PO PRN (17:23)
[2020-05-23] MEDS ORDERED: traZODone 50 MG Tab PO PRN (17:26)
[2020-05-23] MEDS: Sodium Chloride 0.9% 1,000 ML IV SCH (17:31)
[2020-05-23] MEDS: Ketorolac 30 MG/ML SDV IVPUSH SCH (20:45)
[2020-05-23] MEDS: ceFAZolin 1 GM in Premix Bag 1 BAG IV SCH (20:45)
[2020-05-23] MEDS: Aspirin 81 MG Tab.Chew PO SCH (20:49)
[2020-05-23] MEDS: Tamsulosin 0.4 MG Cap.ER PO SCH (20:49)
[2020-05-23] MEDS: Docusate Sodium 100 MG Cap PO SCH (20:49)
[2020-05-23] MEDS: Potassium Chloride 20 MEQ Tab.ER PO SCH (20:49)
[2020-05-23] MEDS: Topiramate 100 MG Tab PO SCH (20:50)
[2020-05-23] MEDS: Simvastatin 20 MG Tab PO SCH (20:50)
[2020-05-23] MEDS: Escitalopram 20 MG Tab PO SCH (20:50)
[2020-05-23] MEDS ORDERED: Nozin Nasal Sanitizer NASBOTH SCH (21:00)
[2020-05-24] MEDS: Sodium Chloride 0.9% 1,000 ML IV SCH ×2 (00:52→08:56)
[2020-05-24] MEDS: Acetaminophen/oxyCODONE 325-5 MG Tab PO PRN ×5 (00:59→18:16)
[2020-05-24] MEDS: ceFAZolin 1 GM in Premix Bag 1 BAG IV SCH ×5 (03:44→20:37)
[2020-05-24] MEDS: Ketorolac 30 MG/ML SDV IVPUSH SCH ×3 (03:45→20:03)
[2020-05-24] MEDS: Pantoprazole 40 MG Tab.CR PO SCH (07:38)
[2020-05-24] MEDS: Potassium Chloride 20 MEQ Tab.ER PO SCH ×3 (08:50→20:31)
[2020-05-24] MEDS: Nozin Nasal Sanitizer NASBOTH SCH ×2 (08:50→20:30)
[2020-05-24] MEDS: Docusate Sodium 100 MG Cap PO SCH ×2 (08:50→20:32)
[2020-05-24] MEDS: Topiramate 100 MG Tab PO SCH ×2 (08:51→20:31)
--- NOTE | 2020-05-24 12:50 | PCM.SURGPN ---
- General Info Date of Service: 05/24/20 Date of Surgery/Procedure: 05/23/20 Post-Op Diagnosis: Left Knee Instability Admission Diagnosis/Problem: Left knee pain Functional Status: Reports: Pain Controlled, Tolerating Diet, Ambulating - Review of Systems General: Reports: No Symptoms HEENT: Reports: No Symptoms Pulmonary: Reports: No Symptoms Cardiovascular: Reports: No Symptoms Gastrointestinal: Reports: No Symptoms Genitourinary: Reports: No Symptoms Musculoskeletal: Reports: Leg Pain, Joint Pain, Joint Swelling (bilateral lower extremity swelling, left knee joint pain, right calf pain ) Skin: Reports: No Symptoms Neurological: Reports: No Symptoms Psychiatric: Reports: No Symptoms - Patient Data Vitals - Most Recent: Last Vital Signs Temp 99.3 F 05/24/20 12:16 Pulse 66 05/24/20 12:16 Resp 16 05/24/20 12:16 BP 126/62 05/24/20 12:16 Pulse Ox 93 L 05/24/20 12:16 Weight - Most Recent: 287 lb 2.998 oz I&O - Last 24 Hours: Intake & Output 05/23/20 05/24/20 05/24/20 22:59 06:59 14:59 Intake Total 1400 1506 650 Output Total 525 850 Balance 875 656 650 Lab Results Last 24 Hrs: Laboratory Results - last 24 hr 05/24/20 05/24/20 Range/Units 04:40 04:40 WBC 5.0 (4.5-11.0) K/uL RBC 4.29 L (4.30-5.90) M/uL Hgb 11.9 L D (12.0-15.0) g/dL Hct 38.5 L (40.0-54.0) % MCV 90 (80-98) fL MCH 28 (27-31) pg MCHC 31 L (32-36) % Plt Count 122 L (150-400) K/uL Sodium 138 L (140-148) mmol/L Potassium 4.6 (3.6-5.2) mmol/L Chloride 106 (100-108) mmol/L Carbon Dioxide 23 (21-32) mmol/L Anion Gap 13.6 (5.0-14.0) mmol/L BUN 20 H (7-18) mg/dL Creatinine 1.2 (0.8-1.3) mg/dL Est Cr Clr Drug Dosing 59.28 mL/min Estimated GFR (MDRD) 59 L (>60) Glucose 117 H (74-106) mg/dL Calcium 7.9 L (8.5-10.1) mg/dL Med Orders - Current: Current Medications Acetaminophen (Tylenol) 650 mg PO Q4H PRN PRN Reason: Pain/Fever Hydrocodone Bitart/Acetaminophen ([place] 325-5 Mg) 1 tab PO Q4H PRN PRN Reason: Pain Aspirin (Aspirin) 81 mg PO BEDTIME [facility] Last Admin: 05/23/20 20:49 Dose: 81 mg Documented by: Bandage/Support Products ( Nasal Distributor Operator) 1 applic NASBOTH BID [facility] Stop: 05/29/20 21:01 Last Admin: 05/24/20 08:50 Dose: 1 applic Documented by: Docusate Sodium (Colace) 100 mg PO BID [facility] Last Admin: 05/24/20 08:50 Dose: 100 mg Documented by: Escitalopram Oxalate (Lexapro) 20 mg PO BEDTIME [facility] Last Admin: 05/23/20 20:50 Dose: 20 mg Documented by: Sodium Chloride (Normal Saline) 1,000 mls @ 125 mls/hr IV ASDIRECTED [facility] Last Admin: 05/24/20 08:56 Dose: 125 mls/hr Documented by: Cefazolin Sodium/Dextrose 1 gm (/ Premix) 50 mls @ 100 mls/hr IV Q8H [facility] Stop: 05/24/20 20:29 Last Admin: 05/24/20 12:11 Dose: 100 mls/hr Documented by: Ketorolac Tromethamine (Toradol) 30 mg IVPUSH Q8H [facility] Stop: 05/25/20 12:31 Last Admin: 05/24/20 12:11 Dose: 30 mg Documented by: Loratadine (Claritin) 10 mg PO DAILY PRN PRN Reason: Allergies Magnesium Hydroxide (Milk Of Magnesia) 30 ml PO BID PRN PRN Reason: Constipation Morphine Sulfate (Morphine) 1 mg IVPUSH Q1H PRN PRN Reason: Breakthrough Pain Ondansetron HCl (Zofran) 4 mg IVPUSH Q4H PRN PRN Reason: Nausea/Vomiting Oxycodone/Acetaminophen (Percocet 325-5 Mg) 1 - 2 tab PO Q4H PRN PRN Reason: Pain Last Admin: 05/24/20 09:55 Dose: 2 tab Documented by: Pantoprazole Sodium (Protonix) 40 mg PO ACBREAKFAST [facility] Last Admin: 05/24/20 07:38 Dose: 40 mg Documented by: Potassium Chloride (Klor-Con M20) 20 meq PO TID [facility] Last Admin: 05/24/20 08:50 Dose: 20 meq Documented by: Rivaroxaban (Xarelto) 20 mg PO WITHDINNER [facility] Simvastatin (Zocor) 20 mg PO BEDTIME [facility] Last Admin: 05/23/20 20:50 Dose: 20 mg Documented by: Tamsulosin HCl (Flomax) 0.4 mg PO BEDTIME [facility] Last Admin: 05/23/20 20:49 Dose: 0.4 mg Documented by: Topiramate (Topamax) 100 mg PO BID [facility] Last Admin: 05/24/20 08:51 Dose: 100 mg Documented by: Trazodone HCl (Trazodone) 50 mg PO BEDTIME PRN PRN Reason: Sleep Discontinued Medications Hydrocodone Bitart/Acetaminophen ([place] 325-5 Mg) 1 tab PO Q6H PRN PRN Reason: Pain Fentanyl (Sublimaze) Confirm Administered Dose 100 mcg .ROUTE .STK-MED ONE Stop: 05/23/20 11:53 Fentanyl (Sublimaze) Confirm Administered Dose 100 mcg .ROUTE .STK-MED ONE Stop: 05/23/20 15:16 Fentanyl (Sublimaze) Confirm Administered Dose 100 mcg .ROUTE .STK-MED ONE Stop: 05/23/20 15:49 Fentanyl (Sublimaze) Confirm Administered Dose 100 mcg .ROUTE .STK-MED ONE Stop: 05/23/20 16:14 Lactated Ringer's (Ringers, Lactated) 1,000 mls @ 75 mls/hr IV ASDIRECTED [facility] Last Admin: 05/23/20 09:49 Dose: 75 mls/hr Documented by: Cefazolin Sodium 2 gm/ (Dextrose/Water) 100 mls @ 200 mls/hr IV ONETIME ONE Stop: 05/23/20 10:59 Last Admin: 05/23/20 13:47 Dose: 200 mls/hr Documented by: Tranexamic Acid 1,000 mg/ (Sodium Chloride) 60 mls @ 240 mls/hr IV ONETIME ONE Stop: 05/23/20 10:59 Last Admin: 05/23/20 14:05 Dose: 240 mls/hr Documented by: Tranexamic Acid 1,000 mg/ (Sodium Chloride) 60 mls @ 240 mls/hr IV ASDIRECTED PRN PRN Reason: BLEED Stop: 05/23/20 16:00 Lactated Ringer's (Ringers, Lactated) Confirm Administered Dose 1,000 mls @ as directed .ROUTE .STK-MED ONE Stop: 05/23/20 15:10 Ketorolac Tromethamine (Toradol) 30 mg IVPUSH Q8H [facility] Stop: 05/25/20 09:01 Last Admin: 05/23/20 21:54 Dose: Not Given Documented by: Midazolam HCl (Versed 1 Mg/Ml) Confirm Administered Dose 2 mg .ROUTE .STK-MED ONE Stop: 05/23/20 11:53 Midazolam HCl (Versed 1 Mg/Ml) Confirm Administered Dose 2 mg .ROUTE .STK-MED ONE Stop: 05/23/20 14:05 Oxycodone/Acetaminophen (Percocet 325-5 Mg) 1 - 2 tab PO Q6H PRN PRN Reason: Pain Last Admin: 05/23/20 18:06 Dose: 2 tab Documented by: Povidone Iodine (Betadine 10% Soln) Confirm Administered Dose 1 ml .ROUTE .STK- MED ONE Stop: 05/23/20 07:10 Last Admin: 05/23/20 14:41 Dose: 15 ml Documented by: Propofol (Diprivan 20 Ml) Confirm Administered Dose 200 mg .ROUTE .STK-MED ONE Stop: 05/23/20 11:53 Propofol (Diprivan 20 Ml) Confirm Administered Dose 200 mg .ROUTE .STK-MED ONE Stop: 05/23/20 14:30 Propofol (Diprivan 20 Ml) Confirm Administered Dose 200 mg .ROUTE .STK-MED ONE Stop: 05/23/20 14:30 Propofol (Diprivan 20 Ml) Confirm Administered Dose 200 mg .ROUTE .STK-MED ONE Stop: 05/23/20 15:14 Propofol (Diprivan 20 Ml) Confirm Administered Dose 200 mg .ROUTE .STK-MED ONE Stop: 05/23/20 15:47 Propofol (Diprivan 20 Ml) Confirm Administered Dose 200 mg .ROUTE .STK-MED ONE Stop: 05/23/20 16:38 - Exam Wound/Incisions: Dressing Dry and Intact, No Drainage General: Alert, Oriented, Cooperative, No Acute Distress Extremities: Joint Swelling (bilateral lower extremities ), Leg Pain (right calf, left knee ), Limited Range of Motion Skin: Intact Neurological: No New Focal Deficit Psy/Mental Status: Alert, Normal Affect, Normal Mood Sepsis Event Note - Evaluation Sepsis Screening Result: No Definite Risk - Focused Exam Vital Signs: Vital Signs Temp Pulse Resp BP Pulse Ox 05/24/20 12:16 99.3 F 66 16 126/62 93 L 05/24/20 07:39 98.6 F 72 18 127/72 95 05/24/20 03:43 98.3 F 68 16 118/65 95 - Problem List & Annotations (1) Status post revision of total replacement of left knee SNOMED Code(s): 531581066785448, 566908579956016 Code(s): Z96.652 - PRESENCE OF LEFT ARTIFICIAL KNEE JOINT Status: Acute Current Visit: Yes - Problem List Review Problem List Initiated/Reviewed/Updated: Yes - My Orders Last 24 Hours: Active Orders 24 hr Category Date Time Status Patient Status [ADT] Routine ADT 05/23/20 17:06 Active Ambulate [RC] QID Care 05/23/20 16:58 Active Antiembolic Devices [RC] .Routine Care 05/23/20 16:58 Active Antiembolic Devices [RC] .Routine Care 05/23/20 17:07 Active Head of Bed Elevation [RC] ASDIRECTED Care 05/23/20 17:06 Active Intake and Output [RC] QSHIFT Care 05/23/20 17:06 Active May Shower [RC] ASDIRECTED Care 05/23/20 17:06 Active Neurovascular Check [RC] Q4H Care 05/23/20 17:06 Active Notify Provider Vital Signs [RC] ASDIRECTED Care 05/23/20 16:58 Active Oxygen Therapy [RC] PRN Care 05/23/20 17:06 Active RT Incentive Spirometry [RC] Q1HWA Care 05/23/20 17:06 Active Up to Chair [RC] QID Care 05/23/20 17:06 Active VTE/DVT Education [RC] Click to Edit Care 05/23/20 17:07 Active Vital Signs [RC] Q4H Care 05/23/20 17:06 Active Wound Care [RC] Q12H Care 05/23/20 17:06 Active Consult to Case Management/Spout Liner [CONS] Cons 05/23/20 17:06 Active Routine OT Evaluation and Treatment [CONS] Routine Cons 05/23/20 16:58 Active PT Evaluation and Treatment [CONS] Routine Cons 05/23/20 17:06 Active PT Evaluation and Treatment [CONS] Routine Cons 05/23/20 17:06 Active Regular Diet [DIET] Diet 05/23/20 Dinner Active Knee 1V or 2V Lt [CR] Routine Exams 05/23/20 16:58 Taken Acetaminophen [TylenoL] Med 05/23/20 16:58 Active 650 mg PO Q4H PRN Acetaminophen/HYDROcodone [[place] 325-5 MG] Med 05/23/20 18:38 Active 1 tab PO Q4H PRN Acetaminophen/oxyCODONE [Percocet 325-5 MG] Med 05/23/20 18:39 Active 1 - 2 tab PO Q4H PRN Aspirin Med 05/23/20 21:00 Active 81 mg PO BEDTIME Docusate Sodium [Colace] Med 05/23/20 21:00 Active 100 mg PO BID Escitalopram [Lexapro] Med 05/23/20 21:00 Active 20 mg PO BEDTIME Ketorolac [Toradol] Med 05/23/20 20:30 Active 30 mg IVPUSH Q8H Loratadine [Claritin] Med 05/23/20 17:23 Active 10 mg PO DAILY PRN Magnesium Hydroxide [Milk of Magnesia] Med 05/23/20 16:58 Active 30 ml PO BID PRN Morphine Med 05/23/20 16:58 Active 1 mg IVPUSH Q1H PRN Ondansetron [Zofran] Med 05/23/20 16:58 Active 4 mg IVPUSH Q4H PRN Pantoprazole [ProTONIX] Med 05/24/20 07:30 Active 40 mg PO ACBREAKFAST Potassium Chloride [Klor-Con M20] Med 05/23/20 21:00 Active 20 meq PO TID Rivaroxaban [Xarelto] Med 05/24/20 17:00 Active 20 mg PO WITHDINNER Simvastatin [Zocor] Med 05/23/20 21:00 Active 20 mg PO BEDTIME Sodium Chloride 0.9% [Normal Saline] 1,000 ml Med 05/23/20 17:00 Active IV ASDIRECTED Tamsulosin [Flomax] Med 05/23/20 21:00 Active 0.4 mg PO BEDTIME Topiramate [Topamax] Med 05/23/20 21:00 Active 100 mg PO BID ceFAZolin [Ancef] 1 gm Med 05/23/20 20:00 Active Premix Bag 1 bag IV Q8H traZODone Med 05/23/20 17:26 Active 50 mg PO BEDTIME PRN Antiembolic Hose [OM.PC] Routine Oth 05/23/20 17:06 Ordered DVT/VTE Prophylaxis Reflex [OM.PC] Routine Oth 05/23/20 17:06 Ordered Ice Therapy [OM.PC] Per Unit Routine Oth 05/23/20 17:06 Ordered Medication Continuation Instructions [OM.PC] Per Unit Oth 05/23/20 17:06 Ordered Routine Oral Care [OM.PC] Routine Oth 05/23/20 17:06 Ordered Sequential Compression Device [OM.PC] Routine Oth 05/23/20 17:06 Ordered Resuscitation Status Routine Resus Stat 05/23/20 16:58 Ordered Medication Orders Acetaminophen (Tylenol) 650 mg PO Q4H PRN PRN Reason: Pain/Fever Hydrocodone Bitart/Acetaminophen ([place] 325-5 Mg) 1 tab PO Q4H PRN PRN Reason: Pain Aspirin (Aspirin) 81 mg PO BEDTIME [facility] Last Admin: 05/23/20 20:49 Dose: 81 mg Documented by: LISA Bandage/Support Products ( Nasal Distributor Operator) 1 applic NASBOTH BID [facility] Stop: 05/29/20 21:01 Last Admin: 05/24/20 08:50 Dose: 1 applic Documented by: Admin: 05/23/20 20:50 Dose: 1 applic Documented by: Admin: 05/23/20 09:54 Dose: 3 swab Documented by: TRISTAN Docusate Sodium (Colace) 100 mg PO BID [facility] Last Admin: 05/24/20 08:50 Dose: 100 mg Documented by: Admin: 05/23/20 20:49 Dose: 100 mg Documented by: LISA Escitalopram Oxalate (Lexapro) 20 mg PO BEDTIME [facility] Last Admin: 05/23/20 20:50 Dose: 20 mg Documented by: LISA Sodium Chloride (Normal Saline) 1,000 mls @ 125 mls/hr IV ASDIRECTED [facility] Last Admin: 05/24/20 08:56 Dose: 125 mls/hr Documented by: Infusion: 05/24/20 08:52 Dose: 125 mls/hr Documented by: Admin: 05/24/20 00:52 Dose: 125 mls/hr Documented by: Infusion: 05/24/20 00:52 Dose: 125 mls/hr Documented by: Admin: 05/23/20 17:31 Dose: 125 mls/hr Documented by: GISELLA Cefazolin Sodium/Dextrose 1 gm (/ Premix) 50 mls @ 100 mls/hr IV Q8H [facility] Stop: 05/24/20 20:29 Last Admin: 05/24/20 12:11 Dose: 100 mls/hr Documented by: Admin: 05/24/20 12:07 Dose: Not Given Documented by: Infusion: 05/24/20 04:16 Dose: 100 mls/hr Documented by: Admin: 05/24/20 03:46 Dose: 100 mls/hr Documented by: ROBBI Ketorolac Tromethamine (Toradol) 30 mg IVPUSH Q8H [facility] Stop: 05/25/20 12:31 Last Admin: 05/24/20 12:11 Dose: 30 mg Documented by: Admin: 05/24/20 03:45 Dose: 30 mg Documented by: Admin: 05/23/20 20:45 Dose: 30 mg Documented by: LISA Loratadine (Claritin) 10 mg PO DAILY PRN PRN Reason: Allergies Magnesium Hydroxide (Milk Of Magnesia) 30 ml PO BID PRN PRN Reason: Constipation Morphine Sulfate (Morphine) 1 mg IVPUSH Q1H PRN PRN Reason: Breakthrough Pain Ondansetron HCl (Zofran) 4 mg IVPUSH Q4H PRN PRN Reason: Nausea/Vomiting Oxycodone/Acetaminophen (Percocet 325-5 Mg) 1 - 2 tab PO Q4H PRN PRN Reason: Pain Last Admin: 05/24/20 09:55 Dose: 2 tab Documented by: Admin: 05/24/20 05:53 Dose: 2 tab Documented by: Admin: 05/24/20 00:59 Dose: 2 tab Documented by: HEATH Pantoprazole Sodium (Protonix) 40 mg PO ACBREAKFAST [facility] Last Admin: 05/24/20 07:38 Dose: 40 mg Documented by: JAMES Potassium Chloride (Klor-Con M20) 20 meq PO TID [facility] Last Admin: 05/24/20 08:50 Dose: 20 meq Documented by: Admin: 05/23/20 20:49 Dose: 20 meq Documented by: LISA Rivaroxaban (Xarelto) 20 mg PO WITHDINNER [facility] Simvastatin (Zocor) 20 mg PO BEDTIME [facility] Last Admin: 05/23/20 20:50 Dose: 20 mg Documented by: LISA Tamsulosin HCl (Flomax) 0.4 mg PO BEDTIME [facility] Last Admin: 05/23/20 20:49 Dose: 0.4 mg Documented by: LISA Topiramate (Topamax) 100 mg PO BID [facility] Last Admin: 05/24/20 08:51 Dose: 100 mg Documented by: Admin: 05/23/20 20:50 Dose: 100 mg Documented by: LISA Trazodone HCl (Trazodone) 50 mg PO BEDTIME PRN PRN Reason: Sleep - Assessment Assessment (Free Text/Narrative):: Patient is a pleasant 75 y/o male, POD #1, s/p left total knee revision. Patient tolerated surgery well and had no complications. Patient ambulated 102 feet with FWW with physical therapy this morning. Patient tolerating regular diet at this time with no concerns of nausea or emesis. Patient had a bowel movement this morning. Has mild pain in the left knee, but states pain is more severe in his right calf region, as he took a fall prior to surgery and reports injuring his right calf during fall. Patient status changed from same day to inpatient; patient requires additional therapy sessions to be safe at home prior to discharge. Plan: * Verbal approval given to nursing staff to remove sykes; education provided to patient regarding the increased infection risk the longer the Sykes stays in. Patient requested to use diapers once Sykes is removed; nursing staff aware. * Patient to continue seeing and working with physical therapy during hospital stay * Dressing change will be performed tomorrow by orthopedic provider * Xray ordered for right lower extremity to assess any injuries from fall prior to hospital stay. * Calf pain was present prior to surgery. No warmth or redness of calf appreciated, not concerned about DVT at this time. Mechanical and chemical prophylaxis are being utilized per protocol. * Anticipate discharge to home with home health Saturday or depending on progress with physical therapy and pain management
--- NOTE | 2020-05-24 14:37 | CR ---
[facility] Fibula Rt CLINICAL HISTORY: Pain, fall FINDINGS: Two views show no evidence of fracture or bone destruction. No soft tissue abnormality is seen. Patient has a total knee arthroplasty. Impression: No fracture or dislocation
[2020-05-24] MEDS: Rivaroxaban 10 MG Tab PO SCH (17:14)
[2020-05-24] MEDS: Simvastatin 20 MG Tab PO SCH (20:31)
[2020-05-24] MEDS: Escitalopram 20 MG Tab PO SCH (20:31)
[2020-05-24] MEDS: Aspirin 81 MG Tab.Chew PO SCH (20:31)
[2020-05-24] MEDS: Tamsulosin 0.4 MG Cap.ER PO SCH (20:32)
[2020-05-25] MEDS: Acetaminophen/oxyCODONE 325-5 MG Tab PO PRN ×3 (02:47→20:14)
[2020-05-25] MEDS: Ketorolac 30 MG/ML SDV IVPUSH SCH ×2 (04:57→12:38)
[2020-05-25] MEDS: Pantoprazole 40 MG Tab.CR PO SCH (07:52)
[2020-05-25] MEDS: Docusate Sodium 100 MG Cap PO SCH ×2 (10:30→20:14)
[2020-05-25] MEDS: Potassium Chloride 20 MEQ Tab.ER PO SCH ×3 (10:30→20:14)
[2020-05-25] MEDS: Nozin Nasal Sanitizer NASBOTH SCH ×2 (10:30→20:11)
[2020-05-25] MEDS: Topiramate 100 MG Tab PO SCH ×2 (10:31→20:14)
[2020-05-25] MEDS ORDERED: Morphine 15 MG Tab.ER PO ONE (15:00)
--- NOTE | 2020-05-25 15:48 | PCM.SURGPN ---
- General Info Date of Service: 05/25/20 Date of Surgery/Procedure: 05/23/20 POD#: 2 Post-Op Diagnosis: Left Knee Instability Functional Status: Reports: Tolerating Diet, Ambulating, Urinating - Review of Systems General: Reports: No Symptoms HEENT: Reports: No Symptoms Pulmonary: Reports: No Symptoms Cardiovascular: Reports: No Symptoms Gastrointestinal: Reports: No Symptoms Genitourinary: Reports: No Symptoms Musculoskeletal: Reports: Leg Pain (bilateral), Joint Pain (left knee ), Joint Swelling (bilateral lower extremities ) Skin: Reports: No Symptoms Neurological: Reports: No Symptoms Psychiatric: Reports: No Symptoms - Patient Data Vitals - Most Recent: Last Vital Signs Temp 95.9 F L 05/25/20 15:17 Pulse 68 05/25/20 15:17 Resp 16 05/25/20 15:17 BP 119/58 L 05/25/20 15:17 Pulse Ox 98 05/25/20 15:17 Weight - Most Recent: 287 lb 2.998 oz I&O - Last 24 Hours: Intake & Output 05/25/20 05/25/20 05/25/20 06:59 14:59 22:59 Intake Total 500 560 Output Total 350 Balance 150 560 Med Orders - Current: Current Medications Acetaminophen (Tylenol) 650 mg PO Q4H PRN PRN Reason: Pain/Fever Hydrocodone Bitart/Acetaminophen ([place] 325-5 Mg) 1 tab PO Q4H PRN PRN Reason: Pain Aspirin (Aspirin) 81 mg PO BEDTIME [facility] Last Admin: 05/24/20 20:31 Dose: 81 mg Documented by: Bandage/Support Products ( Nasal Automotive Engineer) 1 applic NASBOTH BID [facility] Stop: 05/29/20 21:01 Last Admin: 05/25/20 10:30 Dose: 1 applic Documented by: Docusate Sodium (Colace) 100 mg PO BID [facility] Last Admin: 05/25/20 10:30 Dose: 100 mg Documented by: Escitalopram Oxalate (Lexapro) 20 mg PO BEDTIME [facility] Last Admin: 05/24/20 20:31 Dose: 20 mg Documented by: Loratadine (Claritin) 10 mg PO DAILY PRN PRN Reason: Allergies Magnesium Hydroxide (Milk Of Magnesia) 30 ml PO BID PRN PRN Reason: Constipation Morphine Sulfate (Morphine) 1 mg IVPUSH Q1H PRN PRN Reason: Breakthrough Pain Morphine Sulfate (Ms Contin) 15 mg PO Q12H [facility] Ondansetron HCl (Zofran) 4 mg IVPUSH Q4H PRN PRN Reason: Nausea/Vomiting Oxycodone/Acetaminophen (Percocet 325-5 Mg) 1 - 2 tab PO Q4H PRN PRN Reason: Pain Last Admin: 05/25/20 07:52 Dose: 2 tab Documented by: Pantoprazole Sodium (Protonix) 40 mg PO ACBREAKFAST [facility] Last Admin: 05/25/20 07:52 Dose: 40 mg Documented by: Potassium Chloride (Klor-Con M20) 20 meq PO TID [facility] Last Admin: 05/25/20 15:15 Dose: 20 meq Documented by: Rivaroxaban (Xarelto) 20 mg PO WITHDINNER [facility] Last Admin: 05/24/20 17:14 Dose: 20 mg Documented by: Simvastatin (Zocor) 20 mg PO BEDTIME [facility] Last Admin: 05/24/20 20:31 Dose: 20 mg Documented by: Tamsulosin HCl (Flomax) 0.4 mg PO BEDTIME [facility] Last Admin: 05/24/20 20:32 Dose: 0.4 mg Documented by: Topiramate (Topamax) 100 mg PO BID [facility] Last Admin: 05/25/20 10:31 Dose: 100 mg Documented by: Trazodone HCl (Trazodone) 50 mg PO BEDTIME PRN PRN Reason: Sleep Discontinued Medications Hydrocodone Bitart/Acetaminophen ([place] 325-5 Mg) 1 tab PO Q6H PRN PRN Reason: Pain Fentanyl (Sublimaze) Confirm Administered Dose 100 mcg .ROUTE .STK-MED ONE Stop: 05/23/20 11:53 Fentanyl (Sublimaze) Confirm Administered Dose 100 mcg .ROUTE .STK-MED ONE Stop: 05/23/20 15:16 Fentanyl (Sublimaze) Confirm Administered Dose 100 mcg .ROUTE .STK-MED ONE Stop: 05/23/20 15:49 Fentanyl (Sublimaze) Confirm Administered Dose 100 mcg .ROUTE .STK-MED ONE Stop: 05/23/20 16:14 Lactated Ringer's (Ringers, Lactated) 1,000 mls @ 75 mls/hr IV ASDIRECTED [facility] Last Admin: 05/23/20 09:49 Dose: 75 mls/hr Documented by: Cefazolin Sodium 2 gm/ (Dextrose/Water) 100 mls @ 200 mls/hr IV ONETIME ONE Stop: 05/23/20 10:59 Last Admin: 05/23/20 13:47 Dose: 200 mls/hr Documented by: Tranexamic Acid 1,000 mg/ (Sodium Chloride) 60 mls @ 240 mls/hr IV ONETIME ONE Stop: 05/23/20 10:59 Last Admin: 05/23/20 14:05 Dose: 240 mls/hr Documented by: Tranexamic Acid 1,000 mg/ (Sodium Chloride) 60 mls @ 240 mls/hr IV ASDIRECTED PRN PRN Reason: BLEED Stop: 05/23/20 16:00 Lactated Ringer's (Ringers, Lactated) Confirm Administered Dose 1,000 mls @ as directed .ROUTE .STK-MED ONE Stop: 05/23/20 15:10 Sodium Chloride (Normal Saline) 1,000 mls @ 125 mls/hr IV ASDIRECTED [facility] Last Admin: 05/24/20 08:56 Dose: 125 mls/hr Documented by: Cefazolin Sodium/Dextrose 1 gm (/ Premix) 50 mls @ 100 mls/hr IV Q8H [facility] Stop: 05/24/20 20:29 Last Admin: 05/24/20 20:37 Dose: 100 mls/hr Documented by: Ketorolac Tromethamine (Toradol) 30 mg IVPUSH Q8H [facility] Stop: 05/25/20 09:01 Last Admin: 05/23/20 21:54 Dose: Not Given Documented by: Ketorolac Tromethamine (Toradol) 30 mg IVPUSH Q8H [facility] Stop: 05/25/20 12:31 Last Admin: 05/25/20 12:38 Dose: 30 mg Documented by: Midazolam HCl (Versed 1 Mg/Ml) Confirm Administered Dose 2 mg .ROUTE .STK-MED ONE Stop: 05/23/20 11:53 Midazolam HCl (Versed 1 Mg/Ml) Confirm Administered Dose 2 mg .ROUTE .STK-MED ONE Stop: 05/23/20 14:05 Morphine Sulfate (Ms Contin) 15 mg PO ONETIME ONE Stop: 05/25/20 15:01 Last Admin: 05/25/20 15:15 Dose: 15 mg Documented by: Oxycodone/Acetaminophen (Percocet 325-5 Mg) 1 - 2 tab PO Q6H PRN PRN Reason: Pain Last Admin: 05/23/20 18:06 Dose: 2 tab Documented by: Povidone Iodine (Betadine 10% Soln) Confirm Administered Dose 1 ml .ROUTE .STK- MED ONE Stop: 05/23/20 07:10 Last Admin: 05/23/20 14:41 Dose: 15 ml Documented by: Propofol (Diprivan 20 Ml) Confirm Administered Dose 200 mg .ROUTE .STK-MED ONE Stop: 05/23/20 11:53 Propofol (Diprivan 20 Ml) Confirm Administered Dose 200 mg .ROUTE .STK-MED ONE Stop: 05/23/20 14:30 Propofol (Diprivan 20 Ml) Confirm Administered Dose 200 mg .ROUTE .STK-MED ONE Stop: 05/23/20 14:30 Propofol (Diprivan 20 Ml) Confirm Administered Dose 200 mg .ROUTE .STK-MED ONE Stop: 05/23/20 15:14 Propofol (Diprivan 20 Ml) Confirm Administered Dose 200 mg .ROUTE .STK-MED ONE Stop: 05/23/20 15:47 Propofol (Diprivan 20 Ml) Confirm Administered Dose 200 mg .ROUTE .STK-MED ONE Stop: 05/23/20 16:38 - Exam Wound/Incisions: Dressing Dry and Intact, No Drainage General: Alert, Oriented, Cooperative Extremities: Pedal Edema (bilateral ), Joint Swelling (left knee ), Leg Pain (bilateral ), Limited Range of Motion Skin: Intact Neurological: No New Focal Deficit Psy/Mental Status: Alert, Normal Affect, Normal Mood Sepsis Event Note - Evaluation Sepsis Screening Result: No Definite Risk - Focused Exam Vital Signs: Vital Signs Temp Pulse Resp BP Pulse Ox 05/25/20 15:17 95.9 F L 68 16 119/58 L 98 05/25/20 07:00 96.8 F L 63 18 102/50 L 98 - Problem List & Annotations (1) Status post revision of total replacement of left knee SNOMED Code(s): 132714496240758, 962763731684990 Code(s): Z96.652 - PRESENCE OF LEFT ARTIFICIAL KNEE JOINT Status: Acute Current Visit: Yes - Problem List Review Problem List Initiated/Reviewed/Updated: Yes - My Orders Last 24 Hours: Active Orders 24 hr Category Date Time Status Morphine [MS Contin] Med 05/26/20 07:00 Active 15 mg PO Q12H Rivaroxaban [Xarelto] Med 05/24/20 17:00 Active 20 mg PO WITHDINNER Medication Orders Acetaminophen (Tylenol) 650 mg PO Q4H PRN PRN Reason: Pain/Fever Hydrocodone Bitart/Acetaminophen ([place] 325-5 Mg) 1 tab PO Q4H PRN PRN Reason: Pain Aspirin (Aspirin) 81 mg PO BEDTIME [facility] Admin: 05/24/20 20:31 Dose: 81 mg Documented by: Admin: 05/23/20 20:49 Dose: 81 mg Documented by: LISA Bandage/Support Products ( Nasal Automotive Engineer) 1 applic NASBOTH BID [facility] Stop: 05/29/20 21:01 Last Admin: 05/25/20 10:30 Dose: 1 applic Documented by: Admin: 05/24/20 20:30 Dose: 1 applic Documented by: Admin: 05/24/20 08:50 Dose: 1 applic Documented by: Admin: 05/23/20 20:50 Dose: 1 applic Documented by: Admin: 05/23/20 09:54 Dose: 3 swab Documented by: TRISTAN Docusate Sodium (Colace) 100 mg PO BID [facility] Admin: 05/25/20 10:30 Dose: 100 mg Documented by: Admin: 05/24/20 20:32 Dose: 100 mg Documented by: Admin: 05/24/20 08:50 Dose: 100 mg Documented by: Admin: 05/23/20 20:49 Dose: 100 mg Documented by: LISA Escitalopram Oxalate (Lexapro) 20 mg PO BEDTIME [facility] Last Admin: 05/24/20 20:31 Dose: 20 mg Documented by: Admin: 05/23/20 20:50 Dose: 20 mg Documented by: LISA Loratadine (Claritin) 10 mg PO DAILY PRN PRN Reason: Allergies Magnesium Hydroxide (Milk Of Magnesia) 30 ml PO BID PRN PRN Reason: Constipation Morphine Sulfate (Morphine) 1 mg IVPUSH Q1H PRN PRN Reason: Breakthrough Pain Morphine Sulfate (Ms Contin) 15 mg PO Q12H [facility] Ondansetron HCl (Zofran) 4 mg IVPUSH Q4H PRN PRN Reason: Nausea/Vomiting Oxycodone/Acetaminophen (Percocet 325-5 Mg) 1 - 2 tab PO Q4H PRN PRN Reason: Pain Last Admin: 05/25/20 07:52 Dose: 2 tab Documented by: Admin: 05/25/20 02:47 Dose: 2 tab Documented by: Admin: 05/24/20 18:16 Dose: 2 tab Documented by: Admin: 05/24/20 14:00 Dose: 2 tab Documented by: Admin: 05/24/20 09:55 Dose: 2 tab Documented by: Admin: 05/24/20 05:53 Dose: 2 tab Documented by: Admin: 05/24/20 00:59 Dose: 2 tab Documented by: HEATH Pantoprazole Sodium (Protonix) 40 mg PO ACBREAKFAST [facility] Admin: 05/25/20 07:52 Dose: 40 mg Documented by: Admin: 05/24/20 07:38 Dose: 40 mg Documented by: JAMES Potassium Chloride (Klor-Con M20) 20 meq PO TID [facility] Admin: 05/25/20 15:15 Dose: 20 meq Documented by: Admin: 05/25/20 10:30 Dose: 20 meq Documented by: Admin: 05/24/20 20:31 Dose: 20 meq Documented by: Admin: 05/24/20 14:01 Dose: 20 meq Documented by: Admin: 05/24/20 08:50 Dose: 20 meq Documented by: Admin: 05/23/20 20:49 Dose: 20 meq Documented by: LISA Rivaroxaban (Xarelto) 20 mg PO WITHDINNER [facility] Admin: 05/24/20 17:14 Dose: 20 mg Documented by: JAMES Simvastatin (Zocor) 20 mg PO BEDTIME [facility] Admin: 05/24/20 20:31 Dose: 20 mg Documented by: Admin: 05/23/20 20:50 Dose: 20 mg Documented by: LISA Tamsulosin HCl (Flomax) 0.4 mg PO BEDTIME [facility] Admin: 05/24/20 20:32 Dose: 0.4 mg Documented by: Admin: 05/23/20 20:49 Dose: 0.4 mg Documented by: LISA Topiramate (Topamax) 100 mg PO BID [facility] Admin: 05/25/20 10:31 Dose: 100 mg Documented by: Admin: 05/24/20 20:31 Dose: 100 mg Documented by: Admin: 05/24/20 08:51 Dose: 100 mg Documented by: Admin: 05/23/20 20:50 Dose: 100 mg Documented by: LISA Trazodone HCl (Trazodone) 50 mg PO BEDTIME PRN PRN Reason: Sleep - Assessment Assessment (Free Text/Narrative):: Assessment: Patient is a pleasant 75 y/o male, POD#2, s/p left total knee revision. Patient tolerated surgery well with no complications. Patient has been ambulating with FWW with physical therapy up to 300 feet. Patient has been working with occupational therapy; is able to transfer in and out of bed, as well as use the long handled reachers to assist with dressing. FELIPE wrap was removed and changed by nursing due to bloody drainage saturating wrap. No drainage noted since dressing change at 1035. Tolerating diet without nausea or emesis. Patient reports being in pain everywhere and that the pain medication isnt helping; feels that his pain is limiting his ability to practice ADLs with occupational therapy. Patient requires inpatient management at this time to optimize pain control prior to discharge home. Exam: Dressing dry, no drainage. Bilateral lower extremities are swollen, per patients baseline prior to surgery. Additional swelling in left knee post- revision. Plan: * MS Contin added for additional pain management control, as patient was not getting relief from the Percocet and the pain was limiting his work with occupational therapy. * Right calf pain: xray of right Tib/Fib ordered yesterday, ruled out any fractures or dislocations. Communicated this finding to patient * Continue with physical therapy and occupational therapy sessions while in the hospital * Dressing change will be performed by orthopedic team tomorrow * Anticipate discharge to home with home health services, pending that pain is managed with PO medications.
[2020-05-25] MEDS: Rivaroxaban 10 MG Tab PO SCH (17:06)
[2020-05-25] MEDS: Escitalopram 20 MG Tab PO SCH (20:13)
[2020-05-25] MEDS: Simvastatin 20 MG Tab PO SCH (20:13)
[2020-05-25] MEDS: Aspirin 81 MG Tab.Chew PO SCH (20:14)
[2020-05-25] MEDS: Tamsulosin 0.4 MG Cap.ER PO SCH (20:14)
[2020-05-26] MEDS: Acetaminophen/oxyCODONE 325-5 MG Tab PO PRN ×3 (02:42→12:02)
[2020-05-26] MEDS ORDERED: Morphine 15 MG Tab.ER PO SCH (07:00)
--- NOTE | 2020-05-26 09:37 | CR ---
Knee 1V or 2V Lt CLINICAL HISTORY: Postop FINDINGS: Patient is status post total knee arthroplasty. This is a revision. Components appear well seated. Impression: Status post op total knee arthroplasty revision
[2020-05-26] MEDS: Potassium Chloride 20 MEQ Tab.ER PO SCH (09:38)
[2020-05-26] MEDS: Pantoprazole 40 MG Tab.CR PO SCH (09:38)
[2020-05-26] MEDS: Nozin Nasal Sanitizer NASBOTH SCH (09:38)
[2020-05-26] MEDS: Docusate Sodium 100 MG Cap PO SCH (09:38)
[2020-05-26] MEDS: Topiramate 100 MG Tab PO SCH (09:39)
[2020-05-26 10:10] VITALS: BP 104/54; PULSE 64
[2020-05-26] MEDS ORDERED: Cephalexin 250 MG Cap PO ONE (12:00)
--- NOTE | 2020-06-13 14:57 | OR ---
DATE OF PROCEDURE: 05/23/2020 SURGEON: Yousif Bueno MD PREOPERATIVE DIAGNOSES: 1. Left knee instability. 2. Painful left total knee. POSTOPERATIVE DIAGNOSES: 1. Left knee instability. 2. Painful left total knee. PROCEDURE: Revision, left total knee, utilizing Priscila LCCK components with a size F femur and 17 x 100 mm stem with a single 5 mm distal augment and size 5 tibial baseplate with a 10 mm full tibial augment and a 23 mm articular surface and a 13 x 100 mm offset stem. [employer] MANAGER: JOSE Moya ANESTHESIA: Spinal with sedation. INDICATIONS: Jeffy is a very pleasant 75-year-old gentleman with a history of previous left total knee arthroplasty done approximately 15 years ago. He has been experiencing increasing pain and instability in the left knee. He has fallen multiple times due to the knee giving way. Examination is consistent with instability of the left knee, particularly in mid flexion. Now presents for revision. Risks, benefits, potential complications of the procedure were discussed. Assistance of PA was necessary due to patient's size, need for retraction and positioning of the leg during surgery. DESCRIPTION OF PROCEDURE: After adequate anesthesia was obtained, patient placed supine with a tourniquet about the left upper leg. Leg was prepped and draped in a sterile fashion. Leg was exsanguinated, and tourniquet inflated to 300 mmHg pressure. A previous incision was utilized, carried down through the subcutaneous tissues and a medial parapatellar arthrotomy was performed. Small effusion was present with no evidence of infection. Some hypertrophic synovium was excised from around the patellar component, but this was well-seated and positioned in the patella and was not revised. Using a combination of small straight and curved osteotomes and a Gigli saw, the femoral component was loosened from the femur. There was no evidence of aseptic loosening or infection. Component was removed with some bone loss from the distal condyle. Attention was then turned to the tibia. Tibial component was also loosened using a combination of osteotomes. Again, no evidence of aseptic loosening or infection was noted. Intramedullary canal of the femur was reamed up to 17 mm. Reamer was left in place and used to position the distal femoral cutting jig. The distal femur was slightly touched up without removing significant amounts of additional bone. This was sized to an F component. Intercondylar notch was cut for a constrained condylar component. The trial was assembled including the stem and was evaluated for fit. A 5 mm distal augment was used on one side. Augment was then removed. Attention was turned to the tibia. The tibia was reamed up to a size 13 stem. This was left in place and used to position the tibial resection guide. The tibia was then resected removing the minimal amount possible and still getting down to solid base. Due to the amount of bone removed, a 10-mm augment was utilized on a size 5 baseplate with an offset stem. With the trial in place, articular surfaces were then trialed with a 23 mm providing excellent stability, full extension, and good balance in both flexion and extension. Patella tracked very well. Trial components were then removed. The knee was thoroughly irrigated. Components were assembled on the back table including the augments and stems. Bone surfaces were dried. Components were cemented in place. Excess cement was removed and the knee was held in full extension with a 23 mm trial articular surface as cement cured. This was again taken through range of motion, had full extension and good balance in flexion and extension. A 23-mm polyethylene was snapped into position and secured with the locking screw. The knee was irrigated once again. Knee was closed with #2 Ethibond in interrupted fashion at the capsule, and the knee was again taken through range of motion and he was found to be able to flex to 115 to 120 mm without significant tension on the repair. The patella tracked well with no lateral release. The skin was then closed with 2-0 Vicryl, 3-0 Monocryl. Steri-Strips were applied. Light compressive dressing was then applied. The patient tolerated procedure very well, there were no complications. He was taken from the operating room in stable condition. Yousif Bueno MD /[id number]
== END 2020-05-26 13:30 | disposition home health service (06) | DRG 467 ==
LOC: JP.SDS 08:42 → JP.MS 17:06 → JP.SDS 05-24 11:59 → JP.MS 05-24 12:00 → UNDOADMIN 05-24 12:00 → JP.MS 05-24 14:44 → UNDODISIN 05-26 13:30
PROVIDERS: ADMIT Specialist; ATTEND Specialist
PROC: 0SPD0JZ Removal of Synthetic Substitute from Left Knee Joint, Open Approach (ICD-10-PCS; principal; 2020-05-23)
PROC: 0SRD0J9 Replacement of Left Knee Joint with Synthetic Substitute, Cemented, Open Approach (ICD-10-PCS; 2020-05-23)
DX: M25.362 Other instability, left knee (principal); T84.84XA Pain due to internal orthopedic prosthetic devices, implants and grafts, initial encounter; I12.9 Hypertensive chronic kidney disease with stage 1 through stage 4 chronic kidney disease, or unspecified chronic kidney disease; N18.9 Chronic kidney disease, unspecified; G47.30 Sleep apnea, unspecified; F43.12 Post-traumatic stress disorder, chronic; I25.10 Atherosclerotic heart disease of native coronary artery without angina pectoris; Z79.899 Other long term (current) drug therapy
CPT/HCPCS: 36415; 73560-26-LT; 73560-LT; 73590-26-RT; 73590-RT; 80048; 85027; 86850; 86900; 86901; 97110-GP; 97116-GP; 97162-GP; 97166-GO; 97530-GP; 97535-GO; 97535-GP; A9270-GY; C1713; C1776; J0690; J1885; J2250; J2704; J3010; J7030; J7060; J7120

== ENCOUNTER 2020-06-09 13:45 | Emergency (ER) | payer MEDICARE, OTHER ==
[2020-06-09] MEDS ORDERED: Acetaminophen/oxyCODONE 325-5 MG Tab PO ONE (14:15)
--- NOTE | 2020-06-09 14:18 | EDM.PDOC ---
ED HPI GENERAL MEDICAL PROBLEM - General Chief Complaint: Lower Extremity Injury/Pain Stated Complaint: BLOOD CLOT LEFT LEG Time Seen by Provider: 06/09/20 14:16 Source of Information: Reports: Patient History Limitations: Reports: No Limitations - History of Present Illness INITIAL COMMENTS - FREE TEXT/NARRATIVE: pt had a total knee procedure and was here today for PT. He had a marked increase in pain in the lower leg and thigh area. 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 Onset: Gradual Duration: Day(s): Location: Reports: Lower Extremity, Left Associated Symptoms: Reports: No Other Symptoms Left Lower Leg Pain Score (Numeric/FACES): 7 - Related Data Allergies Allergy/AdvReac Type Severity Reaction Status Date / Time No Known Allergies Allergy Verified 06/09/20 14:00 Home Meds: Home Meds Loratadine [Claritin] 10 mg PO DAILY PRN 10/27/14 [History] Omeprazole [Prilosec] 20 mg PO DAILY 10/27/14 [History] Simvastatin [Zocor] 20 mg PO BEDTIME 10/27/14 [History] Tamsulosin [Flomax] 0.4 mg PO BEDTIME 10/27/14 [History] Topiramate 100 mg PO BID 10/27/14 [History] traZODone 50 mg PO BEDTIME PRN 10/27/14 [History] Aspirin 81 mg PO BEDTIME 01/24/16 [History] Potassium Citrate 20 meq PO TID 01/24/16 [History] Rivaroxaban [Xarelto] 20 mg PO DAILY 01/24/16 [History] Calcium Citrate/Vitamin D3 [Calcium Citrate + D] 1 tab PO QID 06/18/17 [History] Escitalopram [Lexapro] 20 mg PO BEDTIME 05/14/18 [History] Ferrous Gluconate [Iron] 65 mg PO DAILY 05/09/20 [History] Cholecalciferol (Vitamin D3) [Vitamin D] 1,000 unit PO DAILY 05/18/20 [History] Past Medical History HEENT History: Reports: Allergic Rhinitis, Cataract, Impaired Vision Cardiovascular History: Reports: Blood Clots/VTE/DVT, High Cholesterol, Hypertension, MO, Pacemaker Other Cardiovascular History: Heart monitor implanted Respiratory History: Reports: Sleep Apnea, Other (See Below) Other Respiratory History: uses Cpap Gastrointestinal History: Reports: Colon Polyp, GERD, GI Bleed, Hiatal Hernia, PUD Other Gastrointestinal History: bleeding ulcers Genitourinary History: Reports: Renal Calculus, Urinary Incontinence, Other (See Below) Other Genitourinary History: prostate ca Musculoskeletal History: Reports: Arthritis, Back Pain, Chronic, Fracture, Other (See Below) Other Musculoskeletal History: R knee pain. left knee pain. bilateral shoulder pain. states knees would buckle in PT. bilat leg weakness Neurological History: Reports: Concussion, CVA, Headaches, Chronic, Head Trauma, Seizure, Vertigo Other Neuro History: "PTSD Stroke" Psychiatric History: Reports: Anxiety, Depression, PTSD Endocrine/Metabolic History: Reports: Obesity/BMI 30+ Hematologic History: Reports: Anticoagulation Therapy, B12 Deficiency, Blood Transfusion(s) Oncologic (Cancer) History: Reports: Prostate, Other (See Below) Other Oncologic History: Melanoma Dermatologic History: Reports: Other (See Below) Other Dermatologic History: pt. thinks has hx of melanoma - Infectious Disease History Infectious Disease History: Reports: Chicken Pox, Measles - Past Surgical History Head Surgeries/Procedures: Reports: None HEENT Surgical History: Reports: Adenoidectomy, Naso-Sinus Surgery, Tonsillectomy Other HEENT Surgeries/Procedures: deviated septum Cardiovascular Surgical History: Reports: Pacer Respiratory Surgical History: Reports: None GI Surgical History: Reports: Bariatric Procedure, Colonoscopy, EGD, Hernia, Inguinal, Neil Fundoplication Other GI Surgeries/Procedures: partial gastrectomy Male Surgical History: Reports: Lithotripsy (ES[facility]) Endocrine Surgical History: Reports: None Neurological Surgical History: Reports: None Musculoskeletal Surgical History: Reports: Knee Replacement, Shoulder Replacement, Other (See Below) Other Musculoskeletal Surgeries/Procedures:: trigger point injections, reports B TKA approximately 2000 s/p L total knee revision 05/23/2020, R TSA x2, patient reports pain in L LE back to days in the [employer] stating "L leg was reattached" Oncologic Surgical History: Reports: Bone Marrow Aspiration Dermatological Surgical History: Reports: Plastic Surgical Reconstruction/Repair, Skin Biopsy, Skin Graft Social & Family History - Family History Family Medical History: No Pertinent Family History - Tobacco Use Tobacco Use Status *Q: Former Tobacco User Used Tobacco, but Quit: No Month/Year Tobacco Last Used: 1979 Second Hand Smoke Exposure: No - Caffeine Use Caffeine Use: Reports: Coffee - Recreational Drug Use Recreational Drug Use: No Review of Systems - Review of Systems Review Of Systems: See Below Constitutional: Reports: No Symptoms Eyes: Reports: No Symptoms Ears: Reports: No Symptoms Nose: Reports: No Symptoms Mouth/Throat: Reports: No Symptoms Respiratory: Reports: No Symptoms Cardiovascular: Reports: No Symptoms GI/Abdominal: Reports: No Symptoms Genitourinary: Reports: No Symptoms Musculoskeletal: Reports: Other ( increased pain in left leg) ED EXAM, GENERAL - Physical Exam Exam: See Below Free Text/Narrative:: pt had a total knee by Dr Mahoney. He had increased pain in the leg today. There was a concern about a blood clot. He is on xraelto. Exam Limited By: No Limitations General Appearance: Alert, Anxious, Other (pt was uncomfiortable. ) Extremities: Other ( wound looks good. He has swelling but he does not feel that hasd increased. He does not have a fever. He had a us of ther leg which does not show clots. ) Course - Vital Signs Last Recorded V/S: Last Vital Signs Temp 36.8 C 06/09/20 14:04 Pulse 71 06/09/20 14:26 Resp 16 06/09/20 14:26 BP 137/85 06/09/20 14:26 Pulse Ox 97 06/09/20 14:26 - Orders/Labs/Meds Orders: Active Orders 24 hr Category Date Time Status Consult to Orthopedic Clinic [CONS] Routine Cons 06/09/20 15:36 Active Labs: Laboratory Tests 06/09/20 Range/Units 14:23 WBC 6.7 (4.5-11.0) K/uL RBC 4.35 (4.30-5.90) M/uL Hgb 11.8 L (12.0-15.0) g/dL Hct 39.1 L (40.0-54.0) % MCV 90 (80-98) fL MCH 27 (27-31) pg MCHC 30 L (32-36) % Plt Count 365 (150-400) K/uL Neut % (Auto) 81 H (36-66) % Lymph % (Auto) 9 L (24-44) % Steele % (Auto) 10 H (2-6) % Eos % (Auto) 1 L (2-4) % Baso % (Auto) 0 (0-1) % Meds: Medications Discontinued Medications Generic Name Dose Route Start Last Admin Trade Name Freq PRN Reason Stop Dose Admin Oxycodone/Acetaminophen 1 tab 06/09/20 14:15 06/09/20 14:25 Percocet 325-5 Mg PO 06/09/20 14:16 1 tab ONETIME ONE Administration Departure - Departure Time of Disposition: 15:33 Disposition: Home, Self-Care 01 Condition: Fair Clinical Impression: Total knee replacement status, Left leg pain - Discharge Information Referrals: Yousif Desai Sr, MD [Primary Care Provider] - Forms: ED Department Discharge Care Plan Goals: No therapy until he sees Dr Mahoney increase use of cool packs. norco 5/325 q6h prn for severe pain, may use tylenol inbetween, appt with Dr mahoney on saturday. Sepsis Event Note (ED) - Evaluation Sepsis Screening Result: No Definite Risk - Focused Exam Vital Signs: Vital Signs Temp Pulse Resp BP Pulse Ox 06/09/20 14:26 71 16 137/85 97 06/09/20 14:04 36.8 C 79 18 156/103 H 96 06/09/20 14:03 36.8 C 79 18 156/103 H 96 - My Orders Last 24 Hours: My Active Orders 06/09/20 15:36 Consult to Orthopedic Clinic [CONS] Routine - Assessment/Plan Last 24 Hours: My Active Orders 06/09/20 15:36 Consult to Orthopedic Clinic [CONS] Routine
[2020-06-09 14:42] VITALS: BP 137/85; PULSE 71
--- NOTE | 2020-06-09 15:23 | US ---
VL Duplex Lwr Ext Veins Ltd Lt INDICATION: severe pain in lef leg. FINDINGS: Ultrasound examination of the lower extremity using Doppler and compressive technique demonstrates that the common femoral, femoral, and popliteal veins are patent, and negative for thrombus. The calf veins were segmentally visualized and are negative where seen. IMPRESSION: Negative for deep venous thrombosis.
== END 2020-06-09 16:03 | disposition home or self-care (01) ==
LOC: JP.ED 13:45
DX: M79.662 Pain in left lower leg (principal); E78.00 Pure hypercholesterolemia, unspecified; I10 Essential (primary) hypertension; I25.2 Old myocardial infarction; K21.9 Gastro-esophageal reflux disease without esophagitis; M19.90 Unspecified osteoarthritis, unspecified site; R56.9 Unspecified convulsions; E66.9 Obesity, unspecified; Z68.38 Body mass index [BMI] 38.0-38.9, adult; Z96.652 Presence of left artificial knee joint; Z79.82 Long term (current) use of aspirin; Z79.01 Long term (current) use of anticoagulants; Z86.718 Personal history of other venous thrombosis and embolism; Z86.73 Personal history of transient ischemic attack (TIA), and cerebral infarction without residual deficits; Z87.891 Personal history of nicotine dependence
CPT/HCPCS: 36415; 85025; 93971; 99284; A9270

== ENCOUNTER 2020-11-26 12:20 | Emergency (ER) | payer MEDICARE, OTHER ==
[2020-11-26 12:50] VITALS: BP 143/77; PULSE 76
--- NOTE | 2020-11-26 13:49 | EDM.PDOC ---
ED HPI GENERAL MEDICAL PROBLEM - General Chief Complaint: Trauma Stated Complaint: FELL Time Seen by Provider: 11/26/20 13:00 Source of Information: Reports: Patient History Limitations: Reports: No Limitations - History of Present Illness INITIAL COMMENTS - FREE TEXT/NARRATIVE: 75-year-old male fell injuring his ring finger on his right hand, sustaining abrasion to his left hand and left elbow. He stumbled over a hose. He thinks he hit his head and may have lost consciousness for a few seconds to several minutes. He jammed his finger into the ground, the tip of his finger was "crooked" but he straighten it out. He now has some fairly significant bruising in the pulp of the ring finger of the right hand. He also has a superficial abrasion on his left elbow and the back of his left hand. He has no headache, neck pain, back pain, shortness of breath, chest pain, abdominal pain or lower extremity symptoms. Onset: Sudden Duration: Hour(s): (About an hour and a half ago) Location: Reports: Upper Extremity, Left, Upper Extremity, Right Quality: Reports: Ache, Sharp Associated Symptoms: Reports: Other (Superficial abrasion on the left arm) - Related Data Allergies Allergy/AdvReac Type Severity Reaction Status Date / Time No Known Allergies Allergy Verified 11/26/20 12:51 Home Meds: Home Meds Loratadine [Claritin] 10 mg PO DAILY PRN 10/27/14 [History] Omeprazole [Prilosec] 20 mg PO DAILY 10/27/14 [History] Simvastatin [Zocor] 20 mg PO BEDTIME 10/27/14 [History] Topiramate 100 mg PO BID 10/27/14 [History] Aspirin 81 mg PO BEDTIME 01/24/16 [History] Potassium Citrate 20 meq PO TID 01/24/16 [History] Rivaroxaban [Xarelto] 20 mg PO DAILY 01/24/16 [History] Calcium Citrate/Vitamin D3 [Calcium Citrate + D] 1 tab PO QID 06/18/17 [History] Escitalopram [Lexapro] 20 mg PO BEDTIME 05/14/18 [History] Cholecalciferol (Vitamin D3) [Vitamin D] 1,000 unit PO DAILY 05/18/20 [History] Past Medical History HEENT History: Reports: Allergic Rhinitis, Cataract, Impaired Vision Cardiovascular History: Reports: Blood Clots/VTE/DVT, High Cholesterol, Hypertension, [place], Pacemaker Other Cardiovascular History: Heart monitor implanted Respiratory History: Reports: Sleep Apnea, Other (See Below) Other Respiratory History: uses Cpap Gastrointestinal History: Reports: Colon Polyp, GERD, GI Bleed, Hiatal Hernia, PUD Other Gastrointestinal History: bleeding ulcers Genitourinary History: Reports: Renal Calculus, Urinary Incontinence, Other (See Below) Other Genitourinary History: prostate ca Musculoskeletal History: Reports: Arthritis, Back Pain, Chronic, Fracture, Other (See Below) Other Musculoskeletal History: R knee pain. left knee pain. bilateral shoulder pain. states knees would buckle in PT. bilat leg weakness Neurological History: Reports: Concussion, CVA, Headaches, Chronic, Head Trauma, Seizure, Vertigo Other Neuro History: "PTSD Stroke" Psychiatric History: Reports: Anxiety, Depression, PTSD Endocrine/Metabolic History: Reports: Obesity/BMI 30+ Hematologic History: Reports: Anticoagulation Therapy, B12 Deficiency, Blood Transfusion(s) Oncologic (Cancer) History: Reports: Prostate, Other (See Below) Other Oncologic History: Melanoma Dermatologic History: Reports: Other (See Below) Other Dermatologic History: pt. thinks has hx of melanoma - Infectious Disease History Infectious Disease History: Reports: Chicken Pox, Measles - Past Surgical History Head Surgeries/Procedures: Reports: None HEENT Surgical History: Reports: Adenoidectomy, Naso-Sinus Surgery, Tonsillectomy Other HEENT Surgeries/Procedures: deviated septum Cardiovascular Surgical History: Reports: Pacer Respiratory Surgical History: Reports: None GI Surgical History: Reports: Bariatric Procedure, Colonoscopy, EGD, Hernia, Inguinal, Neil Fundoplication Other GI Surgeries/Procedures: partial gastrectomy Male Surgical History: Reports: Lithotripsy (ESWL) Endocrine Surgical History: Reports: None Neurological Surgical History: Reports: None Musculoskeletal Surgical History: Reports: Knee Replacement, Shoulder Replacement, Other (See Below) Other Musculoskeletal Surgeries/Procedures:: trigger point injections, reports B TKA approximately 2000 s/p L total knee revision 05/23/2020, R TSA x2, patient reports pain in L LE back to days in the [employer] stating "L leg was reattached" Oncologic Surgical History: Reports: Bone Marrow Aspiration Dermatological Surgical History: Reports: Plastic Surgical Reconstruction/Repair, Skin Biopsy, Skin Graft Social & Family History - Family History Family Medical History: No Pertinent Family History - Tobacco Use Tobacco Use Status *Q: Never Tobacco User - Caffeine Use Caffeine Use: Reports: Coffee Review of Systems - Review of Systems Review Of Systems: See Below Constitutional: Denies: Fever Eyes: Denies: Tunnel Vision, Vision Change Ears: Denies: Dizziness Respiratory: Reports: No Symptoms Cardiovascular: Reports: No Symptoms GI/Abdominal: Reports: No Symptoms Genitourinary: Reports: No Symptoms Musculoskeletal: Reports: Other (Right ring finger pain) Skin: Reports: Bruising (Bruising is developing on the distal ring finger of the right hand, some shallow abrasions on the left arm) Neurological: Reports: No Symptoms Psychiatric: Reports: No Symptoms ED EXAM, GENERAL - Physical Exam Exam: See Below Exam Limited By: No Limitations General Appearance: Alert, No Apparent Distress Eye Exam: Bilateral Eye: Normal Inspection Head: Atraumatic, Other (I find no objective evidence of injury to the scalp, no palpation tenderness) Neck: Supple, Non-Tender Respiratory/Chest: No Respiratory Distress, Lungs Clear Cardiovascular: Regular Rate, Rhythm. No: Tachycardia, Extra Beats GI/Abdominal: Soft, Non-Tender Extremities: Other (Patient has a superficial abrasion on the left elbow and the dorsal aspect of the left hand, no bony tenderness and full active range of motion of the left arm. There is significant ecchymosis and swelling of the pulp and tenderness ring finger right hand) Neurological: Alert, Oriented Psychiatric: Normal Affect, Normal Mood Course - Vital Signs Last Recorded V/S: Last Vital Signs Temp 97.9 F 11/26/20 13:13 Pulse 76 11/26/20 13:13 Resp 18 11/26/20 13:13 BP 143/77 H 11/26/20 13:13 Pulse Ox 100 11/26/20 13:13 - Orders/Labs/Meds Orders: Active Orders 24 hr Category Date Time Status Fingers Fourth Digit Rt F8 [CR] Stat Exams 11/26/20 13:11 Taken Meds: Medications Discontinued Medications Generic Name Dose Route Start Last Admin Trade Name Freq PRN Reason Stop Dose Admin Bacitracin 1 dose 11/26/20 13:50 11/26/20 14:00 Bacitracin Oint 1 Gm U/D Packet TOP 11/26/20 13:51 1 dose ONETIME ONE Administration - Re-Assessments/Exams Free Text/Narrative Re-Assessment/Exam: 11/26/20 17:15 Patient is very stable, and x-ray of the right ring finger was obtained and does show a distal phalanx fracture. He was fitted with a foam aluminum splint which was taped onto the finger, the superficial abrasions on his arm was covered with bacitracin and Band-Aids. He should keep the finger splinted for at least a couple of weeks, he can recheck with orthopedics for any advice on any continued treatment. Departure - Departure Time of Disposition: 14:00 Disposition: Home, Self-Care 01 Clinical Impression: Fracture of phalanx of digit of hand Qualifiers: Encounter type: initial encounter Fracture type: closed Qualified Code(s): S62.609A - Fracture of unspecified phalanx of unspecified finger, initial en counter for closed fracture Elbow abrasion Qualifiers: Encounter type: initial encounter Laterality: left Qualified Code(s): S50.312A - Abrasion of left elbow, initial encounter - Discharge Information Instructions: Finger Fracture, Adult, [id number], Abrasion, [id number] Referrals: Yousif Desai Sr, MD [Primary Care Provider] - Forms: ED Department Discharge Care Plan Goals: Keep wounds covered and clean while healing, wear splint to your finger for the next few weeks and recheck with orthopedics if any concerns about healing satisfactorily. Continue your regular medications. Sepsis Event Note (ED) - Evaluation Sepsis Screening Result: No Definite Risk - Focused Exam Vital Signs: Vital Signs Temp Pulse Resp BP Pulse Ox 11/26/20 13:13 97.9 F 76 18 143/77 H 100 11/26/20 12:49 97.9 F 76 18 143/77 H 100 - My Orders Last 24 Hours: My Active Orders 11/26/20 13:11 Fingers Fourth Digit Rt F8 [CR] Stat - Assessment/Plan Last 24 Hours: My Active Orders 11/26/20 13:11 Fingers Fourth Digit Rt F8 [CR] Stat
[2020-11-26] MEDS ORDERED: Bacitracin Oint 1 GM U/D Packet TOP ONE (13:50)
--- NOTE | 2020-11-28 09:24 | CR ---
Fingers Fourth Digit Rt F8 CLINICAL HISTORY: Trauma FINDINGS: There is a comminuted fracture of the fourth distal phalanx with minimal displacement. There is no articular surface involvement. IMPRESSION: Fracture fourth distal phalanx
== END 2020-11-26 14:00 | disposition home or self-care (01) ==
LOC: JP.ED 12:20
DX: S62.634A Displaced fracture of distal phalanx of right ring finger, initial encounter for closed fracture (principal); S50.312A Abrasion of left elbow, initial encounter; E78.00 Pure hypercholesterolemia, unspecified; I10 Essential (primary) hypertension; I25.2 Old myocardial infarction; Z95.5 Presence of coronary angioplasty implant and graft; K21.9 Gastro-esophageal reflux disease without esophagitis; Z79.82 Long term (current) use of aspirin; Z79.01 Long term (current) use of anticoagulants; Z79.899 Other long term (current) drug therapy; W01.0XXA Fall on same level from slipping, tripping and stumbling without subsequent striking against object, initial encounter
CPT/HCPCS: 73140-26-F8; 73140-F8; 99283-25

== ENCOUNTER 2020-12-03 11:35 | Emergency (ER) | payer MEDICARE, OTHER ==
[2020-12-03 12:34] VITALS: PULSE 67
--- NOTE | 2020-12-03 12:47 | EDM.PDOC ---
ED HPI GENERAL MEDICAL PROBLEM - General Chief Complaint: Lower Extremity Injury/Pain Stated Complaint: R LEG IS BRUISED AND INFLAMMED Time Seen by Provider: 12/03/20 12:30 Source of Information: Reports: Patient History Limitations: Reports: No Limitations - History of Present Illness INITIAL COMMENTS - FREE TEXT/NARRATIVE: This is a 75 year old male presenting with right lower leg pain, swelling, and redness. the patient reports that he had a fall one week ago and thought he just bruised his right lower leg/calf. However, the area had been getting increasingly painful and swollen and is now red and inflamed. he is able to walk on the right leg, but reports that any pressure over the area of redness is extremely painful. He denies any abrasion, laceration, or open areas over that part of the leg. no fever or chills. He does have a history of DVT, but reports he is compliant with his xarelto and has not missed a dose. He denies any pain in the knee or thigh of the leg. Right Lower Leg Pain Score (Numeric/FACES): 8 - Related Data Allergies Allergy/AdvReac Type Severity Reaction Status Date / Time No Known Allergies Allergy Verified 12/03/20 12:35 Home Meds: Home Meds Loratadine [Claritin] 10 mg PO DAILY PRN 10/27/14 [History] Omeprazole [Prilosec] 20 mg PO DAILY 10/27/14 [History] Simvastatin [Zocor] 20 mg PO BEDTIME 10/27/14 [History] Topiramate 100 mg PO BID 10/27/14 [History] Aspirin 81 mg PO BEDTIME 01/24/16 [History] Potassium Citrate 20 meq PO TID 01/24/16 [History] Rivaroxaban [Xarelto] 20 mg PO DAILY 01/24/16 [History] Calcium Citrate/Vitamin D3 [Calcium Citrate + D] 1 tab PO QID 06/18/17 [History] Escitalopram [Lexapro] 20 mg PO BEDTIME 05/14/18 [History] Cholecalciferol (Vitamin D3) [Vitamin D] 1,000 unit PO DAILY 05/18/20 [History] Past Medical History HEENT History: Reports: Allergic Rhinitis, Cataract, Impaired Vision Cardiovascular History: Reports: Blood Clots/VTE/DVT, High Cholesterol, Hypertension, [place], Pacemaker Other Cardiovascular History: Heart monitor implanted Respiratory History: Reports: Sleep Apnea, Other (See Below) Other Respiratory History: uses Cpap Gastrointestinal History: Reports: Colon Polyp, GERD, GI Bleed, Hiatal Hernia, PUD Other Gastrointestinal History: bleeding ulcers Genitourinary History: Reports: Renal Calculus, Urinary Incontinence, Other (See Below) Other Genitourinary History: prostate ca Musculoskeletal History: Reports: Arthritis, Back Pain, Chronic, Fracture, Other (See Below) Other Musculoskeletal History: R knee pain. left knee pain. bilateral shoulder pain. states knees would buckle in PT. bilat leg weakness Neurological History: Reports: Concussion, CVA, Headaches, Chronic, Head Trauma, Seizure, Vertigo Other Neuro History: "PTSD Stroke" Psychiatric History: Reports: Anxiety, Depression, PTSD Endocrine/Metabolic History: Reports: Obesity/BMI 30+ Hematologic History: Reports: Anticoagulation Therapy, B12 Deficiency, Blood Transfusion(s) Oncologic (Cancer) History: Reports: Prostate, Other (See Below) Other Oncologic History: Melanoma Dermatologic History: Reports: Other (See Below) Other Dermatologic History: pt. thinks has hx of melanoma - Infectious Disease History Infectious Disease History: Reports: Chicken Pox, Measles - Past Surgical History Head Surgeries/Procedures: Reports: None HEENT Surgical History: Reports: Adenoidectomy, Naso-Sinus Surgery, Tonsillectomy Other HEENT Surgeries/Procedures: deviated septum Cardiovascular Surgical History: Reports: Pacer Respiratory Surgical History: Reports: None GI Surgical History: Reports: Bariatric Procedure, Colonoscopy, EGD, Hernia, Inguinal, Neil Fundoplication Other GI Surgeries/Procedures: partial gastrectomy Male Surgical History: Reports: Lithotripsy (ESWL) Endocrine Surgical History: Reports: None Neurological Surgical History: Reports: None Musculoskeletal Surgical History: Reports: Knee Replacement, Shoulder Replacement, Other (See Below) Other Musculoskeletal Surgeries/Procedures:: trigger point injections, reports B TKA approximately 2000 s/p L total knee revision 05/23/2020, R TSA x2, patient reports pain in L LE back to days in the [employer] stating "L leg was reattached" Oncologic Surgical History: Reports: Bone Marrow Aspiration Dermatological Surgical History: Reports: Plastic Surgical Reconstruction/Repair, Skin Biopsy, Skin Graft Social & Family History - Family History Family Medical History: No Pertinent Family History - Tobacco Use Tobacco Use Status *Q: Former Tobacco User Used Tobacco, but Quit: Yes Month/Year Tobacco Last Used: 1997 - Caffeine Use Caffeine Use: Reports: Coffee - Recreational Drug Use Recreational Drug Use: No Review of Systems - Review of Systems Review Of Systems: Comprehensive ROS is negative, except as noted in HPI. ED EXAM, GENERAL - Physical Exam Exam: See Below Exam Limited By: No Limitations General Appearance: Alert, No Apparent Distress Head: Atraumatic, Normocephalic Neck: Supple, Full Range of Motion Respiratory/Chest: No Respiratory Distress, Lungs Clear, Normal Breath Sounds Cardiovascular: Normal Peripheral Pulses Peripheral Pulses: 2+: Dorsalis Pedis (L), Dorsalis Pedis (R) GI/Abdominal: Soft, Non-Tender Extremities: Pedal Edema (chronic bilateral lower extremity edema), Leg Pain, Redness, Other (There is erythema and warmth noted over the right medial lower leg with some resolving ecchymosis. There is no obvious mass, induration, or fluctuance. The area of erythema and warmth is very tender to palpation. The remainder of the RLE is non-tender to papation with normal ROM of the joints.) Neurological: Alert, Oriented, CN II-XII Intact, No Motor/Sensory Deficits Psychiatric: Normal Affect, Normal Mood Skin Exam: Warm, Dry, Erythema, Increased Warmth, Other (erythema and warmth to medial right lower leg. no open skin wounds or lesions noted to the lower extremity) Course - Vital Signs Last Recorded V/S: Last Vital Signs Temp 97 F 12/03/20 12:41 Pulse 67 12/03/20 12:41 Resp 20 12/03/20 12:41 BP 141/78 H 12/03/20 12:41 Pulse Ox 96 12/03/20 12:41 - Orders/Labs/Meds Orders: Active Orders 24 hr Category Date Time Status Tibia Fibula Rt [CR] Stat Exams 12/03/20 12:31 Taken VL Duplex Lwr Ext Veins Ltd Rt [US] Stat Exams 12/03/20 12:32 Ordered Labs: Laboratory Tests 12/03/20 12/03/20 Range/Units 12:50 12:50 WBC 6.5 (4.5-11.0) K/uL RBC 4.48 (4.30-5.90) M/uL Hgb 12.3 (12.0-15.0) g/dL Hct 40.3 (40.0-54.0) % MCV 90 (80-98) fL MCH 28 (27-31) pg MCHC 31 L (32-36) % Plt Count 184 (150-400) K/uL Neut % (Auto) 72.2 H (36-66) % Lymph % (Auto) 14.2 L (24-44) % [place] % (Auto) 10.3 H (2-6) % Eos % (Auto) 3.1 (2-4) % Baso % (Auto) 0.2 (0-1) % Sodium 142 (140-148) mmol/L Potassium 4.3 (3.6-5.2) mmol/L Chloride 108 (100-108) mmol/L Carbon Dioxide 21 (21-32) mmol/L Anion Gap 12.6 (5.0-14.0) mmol/L BUN 29 H (7-18) mg/dL Creatinine 1.1 (0.8-1.3) mg/dL Est Cr Clr Drug Dosing 64.67 mL/min Estimated GFR (MDRD) > 60 (>60) Glucose 76 (74-106) mg/dL Calcium 8.1 L (8.5-10.1) mg/dL Departure - Departure Time of Disposition: 15:04 Disposition: Home, Self-Care 01 Clinical Impression: Contusion, lower leg Lower extremity cellulitis Qualifiers: Laterality: right Qualified Code(s): L03.115 - Cellulitis of right lower limb - Discharge Information Instructions: Cellulitis, Adult Referrals: Yousif Desai Sr, MD [Primary Care Provider] - Forms: ED Department Discharge Additional Instructions: Take the antibiotics as prescribed. Rest and elevate the extremity. Use an rosalie wrap to provide some compression over the area. You can apply ice 3-4 times per day for 15-20 minutes at a time. Follow up with your primary care provider in 3- 4 days if not improving. Return to the emergency department if you develop worsening pain, increasing swelling, fever, or other concerning symptoms. Sepsis Event Note (ED) - Evaluation Sepsis Screening Result: No Definite Risk - Focused Exam Vital Signs: Vital Signs Temp Pulse Resp BP Pulse Ox 12/03/20 12:41 97 F 67 20 141/78 H 96 12/03/20 12:06 97 F 67 20 141/78 H 96 - My Orders Last 24 Hours: My Active Orders 12/03/20 12:31 Tibia Fibula Rt [CR] Stat 12/03/20 12:32 VL Duplex Lwr Ext Veins Ltd Rt [US] Stat - Assessment/Plan Last 24 Hours: My Active Orders 12/03/20 12:31 Tibia Fibula Rt [CR] Stat 12/03/20 12:32 VL Duplex Lwr Ext Veins Ltd Rt [US] Stat Assessment:: This is a 75 year old male presenting with right lower leg pain, redness, and warmth after a fall injury 1 week ago. Differential diagnosis includes cellulitis, abscess, hematoma/infected hematoma, DVT, among others.
[2020-12-03 15:13] VITALS: BP 144/80
--- NOTE | 2020-12-05 09:52 | CR ---
Tibia Fibula Rt CLINICAL HISTORY: Swelling FINDINGS: Two views show no evidence of fracture. There is generalized soft tissue swelling. There is some slightly irregular periosteal reaction across the posterior aspect of the distal tibial metaphysis. Patient has a total knee arthroplasty which appears intact. There is a calcaneal spur. Impression: Soft tissue swelling No acute fracture seen There is some periosteal reaction in the distal tibial metaphysis which appears chronic Calcaneal spur
--- NOTE | 2020-12-05 09:53 | US ---
VL Duplex Lwr Ext Veins Ltd Rt INDICATION: calf pain and swelling, eval for DVT or hematoma FINDINGS: Ultrasound examination of the lower extremity using Doppler and compressive technique demonstrates that the common femoral, femoral, and popliteal veins are patent, and negative for acute thrombus. There is some wall thickening in the common femoral vein. There is normal compressibility The calf veins were segmentally visualized and are negative where seen. IMPRESSION: Negative for acute deep venous thrombosis. There is wall thickening in the common femoral vein may be from previous episode of DVT
== END 2020-12-03 15:18 | disposition home or self-care (01) ==
LOC: JP.ED 11:35
DX: S80.11XA Contusion of right lower leg, initial encounter (principal); L03.115 Cellulitis of right lower limb; E78.00 Pure hypercholesterolemia, unspecified; I10 Essential (primary) hypertension; I25.2 Old myocardial infarction; K21.9 Gastro-esophageal reflux disease without esophagitis; E66.9 Obesity, unspecified; Z79.899 Other long term (current) drug therapy; Z68.41 Body mass index [BMI] 40.0-44.9, adult; Z79.82 Long term (current) use of aspirin; Z87.891 Personal history of nicotine dependence; Z95.5 Presence of coronary angioplasty implant and graft; W18.39XA Other fall on same level, initial encounter
CPT/HCPCS: 36415; 73590-26-RT; 73590-RT; 80048; 85025; 93971-26; 93971-RT; 99284-25

== ENCOUNTER 2021-06-28 05:36 | Day surgery (SDC) | payer MEDICARE, OTHER ==
[2021-06-28] MEDS ORDERED: Nozin Nasal Sanitizer NASBOTH ONE (06:14)
[2021-06-28] MEDS ORDERED: Lactated Ringers 1,000 ML IV SCH (06:15)
[2021-06-28] MEDS ORDERED: Bupivacaine 0.25%/EPINEPHrine 1:200,000 30 ML SDV ONE (06:50)
[2021-06-28] MEDS ORDERED: Bupivacaine 0.5% 30 ML SDV ONE (06:50)
[2021-06-28] MEDS ORDERED: ceFAZolin 1 GM in Premix Bag 1 BAG IV ONE (07:00)
[2021-06-28] MEDS ORDERED: fentaNYL 100 MCG/2 ML SDV ONE ×2 (07:32→08:35)
[2021-06-28] MEDS ORDERED: Propofol 200 MG/20 ML SDV ONE ×2 (07:32→08:17)
[2021-06-28] MEDS ORDERED: Lidocaine 0.5% 50 ML SDV ONE (07:32)
[2021-06-28] MEDS ORDERED: Midazolam 1 MG/ML 2 ML SDV ONE (07:33)
[2021-06-28 09:21] VITALS: PULSE 60
[2021-06-28] MEDS ORDERED: traMADol 50 MG Tab PO ONE (09:45)
[2021-06-28 09:49] VITALS: BP 104/56
== END 2021-06-28 09:56 | disposition home or self-care (01) ==
LOC: JP.SDS 05:36
PROVIDERS: ATTEND Specialist
DX: G56.21 Lesion of ulnar nerve, right upper limb (principal); G56.01 Carpal tunnel syndrome, right upper limb; I10 Essential (primary) hypertension; I25.10 Atherosclerotic heart disease of native coronary artery without angina pectoris; G47.33 Obstructive sleep apnea (adult) (pediatric); K21.9 Gastro-esophageal reflux disease without esophagitis; Z79.82 Long term (current) use of aspirin; Z79.899 Other long term (current) drug therapy; Z87.891 Personal history of nicotine dependence; Z98.890 Other specified postprocedural states
CPT/HCPCS: 64719; 64721; A9270; J0690; J2250; J2704; J3010; J3490; J7120

== ENCOUNTER → 2021-07-03 | Emergency (ER) | payer MEDICARE, OTHER | LOC: JP.ED 14:55 | DX: Z53.21 Procedure and treatment not carried out due to patient leaving prior to being seen by health care provider (principal) ==

== ENCOUNTER 2021-09-20 15:24 | Emergency (ER) | payer MEDICARE, OTHER ==
[2021-09-20] MEDS ORDERED: Aspirin 81 MG Tab.Chew PO ONE (15:42)
[2021-09-20] MEDS ORDERED: Nitroglycerin 0.4 MG Tab.SL SL PRN (15:43)
[2021-09-20 18:34] VITALS: PULSE 63
[2021-09-20 18:45] VITALS: BP 120/75
== END 2021-09-20 19:01 | disposition home or self-care (01) ==
LOC: JP.ED 15:24
DX: I20.9 Angina pectoris, unspecified (principal); M79.602 Pain in left arm; E78.00 Pure hypercholesterolemia, unspecified; I10 Essential (primary) hypertension; I25.2 Old myocardial infarction; K21.9 Gastro-esophageal reflux disease without esophagitis; E66.9 Obesity, unspecified; Z86.73 Personal history of transient ischemic attack (TIA), and cerebral infarction without residual deficits; Z79.899 Other long term (current) drug therapy; Z79.82 Long term (current) use of aspirin; Z68.41 Body mass index [BMI] 40.0-44.9, adult
CPT/HCPCS: 36415; 71045; 71045-26; 80053; 83880; 84484; 85025; 93005; 99285-25; A9270-GY

== ENCOUNTER 2022-06-22 10:52 | Emergency (ER) | payer MEDICARE, OTHER ==
[2022-06-22 11:34] VITALS: BP 145/71; PULSE 60
== END 2022-06-22 13:45 | disposition home or self-care (01) ==
LOC: JP.ED 10:52
DX: M54.50 Low back pain, unspecified (principal); M54.6 Pain in thoracic spine; M25.551 Pain in right hip; R42 Dizziness and giddiness; M25.511 Pain in right shoulder; E78.00 Pure hypercholesterolemia, unspecified; I10 Essential (primary) hypertension; I25.2 Old myocardial infarction; K21.9 Gastro-esophageal reflux disease without esophagitis; E66.01 Morbid (severe) obesity due to excess calories; F12.10 Cannabis abuse, uncomplicated; Z86.73 Personal history of transient ischemic attack (TIA), and cerebral infarction without residual deficits; Z95.0 Presence of cardiac pacemaker; Z79.899 Other long term (current) drug therapy; Z79.82 Long term (current) use of aspirin; Z79.01 Long term (current) use of anticoagulants; Z68.41 Body mass index [BMI] 40.0-44.9, adult
CPT/HCPCS: 71046; 71046-26; 72100; 72100-26; 73030-26-RT; 73030-RT; 73502-26-RT; 73502-RT; 99283

== ENCOUNTER 2022-07-02 10:33 | Emergency (ER) | payer MEDICARE, OTHER ==
[2022-07-02 11:07] VITALS: BP 115/63; PULSE 56
== END 2022-07-02 13:01 | disposition home or self-care (01) ==
LOC: JP.ED 10:33
DX: S29.012A Strain of muscle and tendon of back wall of thorax, initial encounter (principal); S70.12XA Contusion of left thigh, initial encounter; R07.81 Pleurodynia; R42 Dizziness and giddiness; E78.00 Pure hypercholesterolemia, unspecified; I10 Essential (primary) hypertension; I25.2 Old myocardial infarction; K21.9 Gastro-esophageal reflux disease without esophagitis; E66.9 Obesity, unspecified; Z86.73 Personal history of transient ischemic attack (TIA), and cerebral infarction without residual deficits; Z79.82 Long term (current) use of aspirin; Z79.01 Long term (current) use of anticoagulants; Z79.899 Other long term (current) drug therapy; Z87.891 Personal history of nicotine dependence; Z68.41 Body mass index [BMI] 40.0-44.9, adult; W18.30XA Fall on same level, unspecified, initial encounter
CPT/HCPCS: 71250; 71250-26; 73552-26-LT; 73552-LT; 74176; 74176-26; 99285

== ENCOUNTER 2022-09-01 07:09 | Emergency (ER) | payer MEDICARE, OTHER ==
[2022-09-01 07:37] VITALS: PULSE 60
[2022-09-01 07:57] LABS: ESTIMATED GFR 57 mL/min (>60)
[2022-09-01 08:40] VITALS: BP 110/48
== END 2022-09-01 10:03 | disposition home or self-care (01) ==
LOC: JP.ED 07:09
DX: N20.0 Calculus of kidney (principal); N30.21 Other chronic cystitis with hematuria; E78.00 Pure hypercholesterolemia, unspecified; I10 Essential (primary) hypertension; I25.2 Old myocardial infarction; E66.9 Obesity, unspecified; Z79.82 Long term (current) use of aspirin; Z79.899 Other long term (current) drug therapy; Z95.0 Presence of cardiac pacemaker; Z86.73 Personal history of transient ischemic attack (TIA), and cerebral infarction without residual deficits; Z68.41 Body mass index [BMI] 40.0-44.9, adult
CPT/HCPCS: 36415; 74176; 80053; 81001; 85025; 99284

== ENCOUNTER 2022-09-03 15:23 | Emergency (ER) | payer MEDICARE, OTHER ==
[2022-09-03] MEDS ORDERED: Sodium Chloride 0.9% 10 ML Syringe FLUSH PRN (17:07)
[2022-09-03] MEDS ORDERED: Ondansetron 4 MG/2 ML SDV IVPUSH ONE (17:07)
[2022-09-03] MEDS ORDERED: Sodium Chloride 0.9% 1,000 ML IV SCH (17:15)
[2022-09-03] MEDS ORDERED: HYDROmorphone 0.5 MG/0.5 ML Syringe IVPUSH ONE (18:27)
[2022-09-03 19:07] LABS: ESTIMATED GFR 39 mL/min (>60)
[2022-09-03 20:07] VITALS: BP 139/70; PULSE 88
== END 2022-09-03 20:27 | disposition home or self-care (01) ==
LOC: JP.ED 15:23
DX: N20.2 Calculus of kidney with calculus of ureter (principal); E78.00 Pure hypercholesterolemia, unspecified; I10 Essential (primary) hypertension; I25.2 Old myocardial infarction; K21.9 Gastro-esophageal reflux disease without esophagitis; E66.9 Obesity, unspecified; Z68.41 Body mass index [BMI] 40.0-44.9, adult; Z95.0 Presence of cardiac pacemaker; Z86.73 Personal history of transient ischemic attack (TIA), and cerebral infarction without residual deficits; Z79.82 Long term (current) use of aspirin; Z79.899 Other long term (current) drug therapy
CPT/HCPCS: 36415; 80053; 85025; 96361; 96374; 96375; 99284; J1170; J2405; J3490; J7030; 99283

== ENCOUNTER 2022-09-12 09:22 | Inpatient (IN) | payer MEDICARE, OTHER ==
[2022-09-12 10:27] LABS: ESTIMATED GFR 39 mL/min (>60)
[2022-09-12] MEDS ORDERED: cefTRIAXone 1 GM in Sodium Chloride 0.9% 50 ML IV ONE (11:04)
[2022-09-12] MEDS ORDERED: Sodium Chloride 0.9% 10 ML Syringe FLUSH PRN (12:38)
[2022-09-12] MEDS ORDERED: Non-Formulary Medication 1 Each (Loratadine [Claritin] 10 MG Capsule) PO PRN (12:46)
[2022-09-12] MEDS ORDERED: POTASSIUM CITRATE 10 MEQ PO SCH (14:00)
[2022-09-12] MEDS ORDERED: Loratadine 10 MG Tab PO PRN (14:09)
[2022-09-12] MEDS: Verapamil 180 MG Tab.ER PO SCH (15:31)
[2022-09-12] MEDS: Digoxin 125 MCG Tab PO SCH (15:31)
[2022-09-12] MEDS: Tamsulosin 0.4 MG Cap.ER PO SCH (15:31)
[2022-09-12] MEDS: Pantoprazole 40 MG Tab.CR PO SCH (15:31)
[2022-09-12] MEDS: Metoprolol Succinate 50 MG Tab.ER PO SCH (15:31)
[2022-09-12] MEDS: Calcium Carbonate/Vitamin D3 1500 MG-400 Units Tab PO SCH (15:35)
[2022-09-12] MEDS ORDERED: Iopamidol 612 MG/ML 100 ML Bottle IV ONE (15:40)
[2022-09-12] MEDS ORDERED: Sodium Chloride 0.9% 50 ML IV SCH (15:45)
[2022-09-12] MEDS ORDERED: CALCIUM CITRATE PO SCH (16:00)
[2022-09-12] MEDS ORDERED: [UNRECOGNIZED DRUG - OTHER] PO SCH (16:00)
[2022-09-12] MEDS ORDERED: VITAMIN D3 PO SCH (16:00)
[2022-09-12] MEDS: Potassium Chloride 20 MEQ Tab.ER PO SCH (16:26)
[2022-09-12] MEDS: Phenazopyridine 95 MG Tab PO SCH ×2 (16:26→20:51)
[2022-09-12] MEDS: Rivaroxaban 10 MG Tab PO SCH (17:24)
[2022-09-12] MEDS: traMADol 50 MG Tab PO PRN (18:17)
[2022-09-12] MEDS ORDERED: hydrOXYzine HCl 50 MG/ML SDV IM PRN (19:51)
[2022-09-12] MEDS: Cyclobenzaprine 10 MG Tab PO PRN (20:49)
[2022-09-12] MEDS: Aspirin 81 MG Tab.Chew PO SCH (20:50)
[2022-09-12] MEDS: atorvaSTATin 10 MG Tab PO SCH (20:51)
[2022-09-12] MEDS: Escitalopram 20 MG Tab PO SCH (20:51)
[2022-09-12] MEDS: Dextrose 5%-0.9% NaCl 1,000 ML IV SCH (20:52)
[2022-09-12] MEDS ORDERED: Non-Formulary Medication 1 Each (Simvastatin [Zocor] 20 MG Tablet) PO SCH (21:00)
[2022-09-13] MEDS: traMADol 50 MG Tab PO PRN ×3 (02:00→21:11)
[2022-09-13] MEDS: Acetaminophen 325 MG Tab PO PRN ×2 (02:01→13:36)
[2022-09-13] MEDS: Dextrose 5%-0.9% NaCl 1,000 ML IV SCH ×3 (05:02→22:28)
[2022-09-13 06:17] LABS: ESTIMATED GFR 41 mL/min (>60)
[2022-09-13] MEDS ORDERED: Pantoprazole 40 MG Tab.CR PO SCH (07:30)
[2022-09-13] MEDS: Pantoprazole 40 MG Tab.CR PO SCH (08:16)
[2022-09-13] MEDS: Potassium Chloride 20 MEQ Tab.ER PO SCH ×3 (08:16→17:21)
[2022-09-13] MEDS: Phenazopyridine 95 MG Tab PO SCH ×3 (08:17→21:05)
[2022-09-13] MEDS: Metoprolol Succinate 50 MG Tab.ER PO SCH (08:17)
[2022-09-13] MEDS: Multivitamins with Iron/Calcium/Folic Acid/Minerals Tab PO SCH (08:18)
[2022-09-13] MEDS: Calcium Carbonate/Vitamin D3 1500 MG-400 Units Tab PO SCH (08:18)
[2022-09-13] MEDS: Verapamil 180 MG Tab.ER PO SCH (08:18)
[2022-09-13] MEDS: Tamsulosin 0.4 MG Cap.ER PO SCH (08:19)
[2022-09-13] MEDS ORDERED: DIGOXIN 250 MCG PO SCH (09:00)
[2022-09-13] MEDS ORDERED: Rivaroxaban 10 MG Tab PO SCH (09:00)
[2022-09-13] MEDS ORDERED: Metoprolol Succinate 50 MG Tab.ER PO SCH (09:00)
[2022-09-13] MEDS ORDERED: VERAPAMIL 120 MG PO SCH (09:00)
[2022-09-13] MEDS ORDERED: Non-Formulary Medication 1 Each (Multivitamin [Multivitamin] 1 EACH Tablet) PO SCH (09:00)
[2022-09-13] MEDS ORDERED: Tamsulosin 0.4 MG Cap.ER PO SCH (09:00)
[2022-09-13] MEDS ORDERED: Verapamil 180 MG Tab.ER PO SCH (09:00)
[2022-09-13] MEDS ORDERED: Non-Formulary Medication 1 Each (Rivaroxaban [Xarelto] 20 MG Tablet) PO SCH (09:00)
[2022-09-13] MEDS: cefTRIAXone 1 GM in Sodium Chloride 0.9% 50 ML IV SCH (11:21)
[2022-09-13] MEDS ORDERED: Digoxin 125 MCG Tab PO SCH (13:00)
[2022-09-13] MEDS: Cyclobenzaprine 10 MG Tab PO PRN ×2 (13:36→21:10)
[2022-09-13] MEDS: Digoxin 125 MCG Tab PO SCH (14:25)
[2022-09-13] MEDS: Rivaroxaban 10 MG Tab PO SCH (17:22)
[2022-09-13] MEDS: atorvaSTATin 10 MG Tab PO SCH (21:05)
[2022-09-13] MEDS: Aspirin 81 MG Tab.Chew PO SCH (21:06)
[2022-09-13] MEDS: Escitalopram 20 MG Tab PO SCH (21:06)
[2022-09-14] MEDS: Potassium Chloride 20 MEQ Tab.ER PO SCH ×3 (08:44→17:14)
[2022-09-14] MEDS: Verapamil 180 MG Tab.ER PO SCH (08:45)
[2022-09-14] MEDS: Tamsulosin 0.4 MG Cap.ER PO SCH (08:46)
[2022-09-14] MEDS: Calcium Carbonate/Vitamin D3 1500 MG-400 Units Tab PO SCH (08:46)
[2022-09-14] MEDS: Multivitamins with Iron/Calcium/Folic Acid/Minerals Tab PO SCH (08:46)
[2022-09-14] MEDS: Phenazopyridine 95 MG Tab PO SCH ×3 (08:48→20:11)
[2022-09-14] MEDS: Pantoprazole 40 MG Tab.CR PO SCH (08:48)
[2022-09-14] MEDS: Metoprolol Succinate 50 MG Tab.ER PO SCH (08:49)
[2022-09-14] MEDS: Cyclobenzaprine 10 MG Tab PO PRN ×2 (08:50→16:42)
[2022-09-14] MEDS: Digoxin 125 MCG Tab PO SCH (12:09)
[2022-09-14] MEDS: traMADol 50 MG Tab PO PRN ×2 (12:41→20:15)
[2022-09-14] MEDS: cefTRIAXone 1 GM in Sodium Chloride 0.9% 50 ML IV SCH (13:06)
[2022-09-14] MEDS: Dextrose 5%-0.9% NaCl 1,000 ML IV SCH (14:27)
[2022-09-14] MEDS: Rivaroxaban 10 MG Tab PO SCH (17:14)
[2022-09-14] MEDS: Aspirin 81 MG Tab.Chew PO SCH (20:11)
[2022-09-14] MEDS: atorvaSTATin 10 MG Tab PO SCH (20:11)
[2022-09-14] MEDS: Escitalopram 10 MG Tab PO SCH (20:12)
[2022-09-15] MEDS: Dextrose 5%-0.9% NaCl 1,000 ML IV SCH (06:07)
[2022-09-15] MEDS: Pantoprazole 40 MG Tab.CR PO SCH (07:40)
[2022-09-15] MEDS: traMADol 50 MG Tab PO PRN (07:40)
[2022-09-15] MEDS: Potassium Chloride 20 MEQ Tab.ER PO SCH ×3 (07:40→17:03)
[2022-09-15] MEDS: Verapamil 180 MG Tab.ER PO SCH (08:34)
[2022-09-15] MEDS: Tamsulosin 0.4 MG Cap.ER PO SCH ×2 (08:34→17:03)
[2022-09-15] MEDS: Phenazopyridine 95 MG Tab PO SCH ×3 (08:34→20:43)
[2022-09-15] MEDS: Metoprolol Succinate 50 MG Tab.ER PO SCH (08:34)
[2022-09-15] MEDS: Multivitamins with Iron/Calcium/Folic Acid/Minerals Tab PO SCH (08:34)
[2022-09-15] MEDS: Calcium Carbonate/Vitamin D3 1500 MG-400 Units Tab PO SCH (08:34)
[2022-09-15] MEDS: cefTRIAXone 1 GM in Sodium Chloride 0.9% 50 ML IV SCH (11:52)
[2022-09-15] MEDS: Digoxin 125 MCG Tab PO SCH ×2 (11:53→12:01)
[2022-09-15] MEDS: Rivaroxaban 10 MG Tab PO SCH (17:03)
[2022-09-15] MEDS: atorvaSTATin 10 MG Tab PO SCH (20:43)
[2022-09-15] MEDS: Aspirin 81 MG Tab.Chew PO SCH (20:43)
[2022-09-15] MEDS: Escitalopram 10 MG Tab PO SCH (20:43)
[2022-09-16] MEDS: Tamsulosin 0.4 MG Cap.ER PO SCH ×2 (08:30→17:11)
[2022-09-16] MEDS: Pantoprazole 40 MG Tab.CR PO SCH (08:30)
[2022-09-16] MEDS: Potassium Chloride 20 MEQ Tab.ER PO SCH ×3 (08:31→17:11)
[2022-09-16] MEDS: Metoprolol Succinate 50 MG Tab.ER PO SCH (08:32)
[2022-09-16] MEDS: Phenazopyridine 95 MG Tab PO SCH ×3 (08:32→21:12)
[2022-09-16] MEDS: Calcium Carbonate/Vitamin D3 1500 MG-400 Units Tab PO SCH (08:32)
[2022-09-16] MEDS: Verapamil 180 MG Tab.ER PO SCH (08:32)
[2022-09-16] MEDS: Multivitamins with Iron/Calcium/Folic Acid/Minerals Tab PO SCH (08:32)
[2022-09-16] MEDS: cefTRIAXone 1 GM in Sodium Chloride 0.9% 50 ML IV SCH (12:48)
[2022-09-16] MEDS: Digoxin 125 MCG Tab PO SCH (12:48)
[2022-09-16] MEDS: Rivaroxaban 10 MG Tab PO SCH (17:11)
[2022-09-16] MEDS: traMADol 50 MG Tab PO PRN (21:11)
[2022-09-16] MEDS: Escitalopram 10 MG Tab PO SCH (21:12)
[2022-09-16] MEDS: Aspirin 81 MG Tab.Chew PO SCH (21:12)
[2022-09-16] MEDS: atorvaSTATin 10 MG Tab PO SCH (21:12)
[2022-09-17] MEDS: Calcium Carbonate/Vitamin D3 1500 MG-400 Units Tab PO SCH (08:04)
[2022-09-17] MEDS: Tamsulosin 0.4 MG Cap.ER PO SCH ×2 (08:04→17:48)
[2022-09-17] MEDS: Potassium Chloride 20 MEQ Tab.ER PO SCH ×3 (08:04→17:48)
[2022-09-17] MEDS: Pantoprazole 40 MG Tab.CR PO SCH (08:04)
[2022-09-17] MEDS: Multivitamins with Iron/Calcium/Folic Acid/Minerals Tab PO SCH (08:05)
[2022-09-17] MEDS: Metoprolol Succinate 50 MG Tab.ER PO SCH (08:05)
[2022-09-17] MEDS: Phenazopyridine 95 MG Tab PO SCH ×3 (08:05→21:23)
[2022-09-17] MEDS: Verapamil 180 MG Tab.ER PO SCH (08:05)
[2022-09-17] MEDS: cefTRIAXone 1 GM in Sodium Chloride 0.9% 50 ML IV SCH (11:52)
[2022-09-17] MEDS: Digoxin 125 MCG Tab PO SCH (13:02)
[2022-09-17] MEDS: traMADol 50 MG Tab PO PRN (14:09)
[2022-09-17] MEDS: Rivaroxaban 10 MG Tab PO SCH (17:48)
[2022-09-17] MEDS: Aspirin 81 MG Tab.Chew PO SCH (21:22)
[2022-09-17] MEDS: Escitalopram 10 MG Tab PO SCH (21:23)
[2022-09-17] MEDS: atorvaSTATin 10 MG Tab PO SCH (21:23)
[2022-09-18] MEDS: Tamsulosin 0.4 MG Cap.ER PO SCH (08:11)
[2022-09-18] MEDS: Verapamil 180 MG Tab.ER PO SCH (08:11)
[2022-09-18] MEDS: Potassium Chloride 20 MEQ Tab.ER PO SCH (08:11)
[2022-09-18] MEDS: Pantoprazole 40 MG Tab.CR PO SCH (08:11)
[2022-09-18] MEDS: Calcium Carbonate/Vitamin D3 1500 MG-400 Units Tab PO SCH (08:12)
[2022-09-18] MEDS: Multivitamins with Iron/Calcium/Folic Acid/Minerals Tab PO SCH (08:12)
[2022-09-18] MEDS: Metoprolol Succinate 50 MG Tab.ER PO SCH (08:12)
[2022-09-18] MEDS: Phenazopyridine 95 MG Tab PO SCH (08:12)
[2022-09-18 08:14] VITALS: BP 109/63; PULSE 66
== END 2022-09-18 11:30 | disposition home or self-care (01) | DRG 690 ==
LOC: JP.ED 09:22 → JP.MS 12:38
PROVIDERS: ADMIT Internal Medicine; ATTEND Internal Medicine
PROC: 0T9B70Z Drainage of Bladder with Drainage Device, Via Natural or Artificial Opening (ICD-10-PCS; principal; 2022-09-12)
DX: N39.0 Urinary tract infection, site not specified (principal); E78.5 Hyperlipidemia, unspecified; G47.30 Sleep apnea, unspecified; G89.29 Other chronic pain; I10 Essential (primary) hypertension; M54.50 Low back pain, unspecified; H54.7 Unspecified visual loss; E53.8 Deficiency of other specified B group vitamins; Z20.822 Contact with and (suspected) exposure to COVID-19; M54.2 Cervicalgia; I49.5 Sick sinus syndrome; K21.9 Gastro-esophageal reflux disease without esophagitis; M19.90 Unspecified osteoarthritis, unspecified site; M54.9 Dorsalgia, unspecified; F32.A Depression, unspecified; F43.10 Post-traumatic stress disorder, unspecified; I25.10 Atherosclerotic heart disease of native coronary artery without angina pectoris; F41.9 Anxiety disorder, unspecified; Z96.611 Presence of right artificial shoulder joint; Z96.653 Presence of artificial knee joint, bilateral; E78.00 Pure hypercholesterolemia, unspecified; E66.9 Obesity, unspecified; Z79.82 Long term (current) use of aspirin; Z79.899 Other long term (current) drug therapy; Z68.39 Body mass index [BMI] 39.0-39.9, adult; Z86.718 Personal history of other venous thrombosis and embolism; I25.2 Old myocardial infarction; Z87.11 Personal history of peptic ulcer disease; Z86.010 Personal history of colon polyps; Z85.46 Personal history of malignant neoplasm of prostate; Z79.01 Long term (current) use of anticoagulants; Z86.73 Personal history of transient ischemic attack (TIA), and cerebral infarction without residual deficits; Z98.84 Bariatric surgery status; Z98.890 Other specified postprocedural states; Z90.3 Acquired absence of stomach [part of]; Z87.891 Personal history of nicotine dependence
CPT/HCPCS: 36415; 73030-26-LT; 73030-LT; 74177; 74177-26; 74178; 74178-26; 80048; 80053; 81001; 85025; 87086; 87088; 87186; 96361; 96365; 97110-GO; 97110-GP; 97162-GP; 97165-GO; 97530-GP; 97535-GO; 99285; 99285-25; A9270-GY; J0696; J3490; Q9967; U0002

== ENCOUNTER 2022-10-31 08:11 | Day surgery (SDC) | payer MEDICARE, OTHER ==
[~2022-10-31 08:11] MED LIST changes: +Bupivacaine 0.5% 50 ML MDV ONE; -Povidone-Iodine 10% Soln 118.25 ML Bottle ONE
[2022-10-31 08:41] LABS: HEMATOCRIT 34.8 % (38.4-49.7); HEMOGLOBIN 11.1 g/dL (12.9-16.9); MEAN CORPUSCULAR HEMOGLOBIN 29.2 pg (31.6-35.5); MEAN CORPUSCULAR HGB CONC 31.9 g/dL (31.6-35.5); MEAN CORPUSCULAR VOLUME 91.6 fL (81.4-99.0); RED BLOOD CELL COUNT 3.8 M/uL (4.14-5.76); WHITE BLOOD CELL COUNT,WBC 4.4 K/uL (3.2-11.0)
[2022-10-31] MEDS ORDERED: ceFAZolin 2 GM in Premix Bag 1 BAG IV ONE (08:45)
[2022-10-31] MEDS ORDERED: Sodium Chloride 0.9% 1,000 ML IV SCH ×2 (08:45→13:15)
[2022-10-31] MEDS ORDERED: fentaNYL 250 MCG/5 ML SDV ONE ×2 (08:48→09:57)
[2022-10-31] MEDS ORDERED: Bupivacaine 0.5% 30 ML SDV ONE (08:49)
[2022-10-31 09:01] LABS: A/G RATIO 0.8 (1.2-2.2); ALANINE AMINOTRANSFERASE,ALT 20 U/L (12-78); ALBUMIN 3.2 g/dL (3.4-5.0); ALKALINE PHOSPHATASE 116 U/L (46-116); ANION GAP 8.4 mmol/L (5.0-14.0); ASPARTATE AMNIOTRANSFERASE,AST 19 U/L (15-37); BILIRUBIN TOTAL 0.5 mg/dL (0.2-1.0); BLOOD UREA NITROGEN,BUN 21 mg/dL (7-18); CALCIUM 8.1 mg/dL (8.5-10.1); CARBON DIOXIDE,CO2 24 mmol/L (21-32); CHLORIDE,CL 108 mmol/L (100-108); CREATININE 1.3 mg/dL (0.8-1.3); EST CRCL DRUG DOSING (CG) 53.13 mL/min; ESTIMATED GFR 57 mL/min (>60); GLUCOSE RANDOM 107 mg/dL (74-106); POTASSIUM,K 3.7 mmol/L (3.6-5.2); PROTEIN TOTAL,TP 7.2 g/dL (6.4-8.2); SODIUM,NA 140 mmol/L (140-148)
[2022-10-31] MEDS: Nozin Nasal Sanitizer NASBOTH SCH ×2 (09:15→20:53)
[2022-10-31] MEDS ORDERED: Glycopyrrolate 0.2 MG/ML 5 ML MDV ONE (09:57)
[2022-10-31] MEDS ORDERED: Succinylcholine 200 MG/10 ML MDV ONE (09:57)
[2022-10-31] MEDS ORDERED: Dexamethasone 4 MG/ML SDV ONE (09:57)
[2022-10-31] MEDS ORDERED: Ondansetron 4 MG/2 ML SDV ONE (09:57)
[2022-10-31] MEDS ORDERED: Rocuronium 50 MG/5 ML Vial ONE (09:57)
[2022-10-31] MEDS ORDERED: Neostigmine Methylsulfate 1 MG/ML 5 ML Syringe ONE (09:57)
[2022-10-31] MEDS ORDERED: Propofol 200 MG/20 ML SDV ONE ×2 (09:58→10:46)
[2022-10-31] MEDS ORDERED: ePHEDrine 50 MG/ML SDV ONE (11:19)
[2022-10-31] MEDS ORDERED: Lactated Ringers 1,000 ML ONE (12:25)
[2022-10-31] MEDS ORDERED: Ondansetron 4 MG/2 ML SDV IVPUSH PRN (13:14)
[2022-10-31] MEDS ORDERED: Docusate Sodium 100 MG Cap PO PRN (13:14)
[2022-10-31] MEDS ORDERED: ceFAZolin 2 GM in Sodium Chloride 0.9% 100 ML IV SCH (13:15)
[2022-10-31] MEDS ORDERED: oxyCODONE 5 MG Tab PO PRN (13:19)
[2022-10-31] MEDS ORDERED: Non-Formulary Medication 1 Each (Loratadine [Claritin] 10 MG Capsule) PO PRN (13:20)
[2022-10-31] MEDS ORDERED: Loratadine 10 MG Tab PO PRN (14:35)
[2022-10-31] MEDS: Acetaminophen 325 MG Tab PO SCH ×2 (17:06→21:40)
[2022-10-31] MEDS: Tamsulosin 0.4 MG Cap.ER PO SCH (17:07)
[2022-10-31] MEDS: ceFAZolin 2 GM in Premix Bag 1 BAG IV SCH (17:08)
[2022-10-31] MEDS ORDERED: Nozin Nasal Sanitizer NASBOTH SCH (21:00)
[2022-10-31] MEDS ORDERED: Non-Formulary Medication 1 Each (Simvastatin [Zocor] 20 MG Tablet) PO SCH (21:00)
[2022-10-31] MEDS ORDERED: Aspirin 81 MG Tab.Chew PO SCH (21:00)
[2022-11-01] MEDS: ceFAZolin 2 GM in Premix Bag 1 BAG IV SCH ×2 (02:45→10:30)
[2022-11-01] MEDS: Acetaminophen 325 MG Tab PO SCH ×4 (02:46→17:04)
[2022-11-01 04:40] LABS: HEMATOCRIT 27.3 % (38.4-49.7); HEMOGLOBIN 8.4 g/dL (12.9-16.9)
[2022-11-01] MEDS ORDERED: Pantoprazole 40 MG Tab.CR PO SCH (07:30)
[2022-11-01] MEDS: Tamsulosin 0.4 MG Cap.ER PO SCH ×2 (07:31→17:04)
[2022-11-01] MEDS: Nozin Nasal Sanitizer NASBOTH SCH (08:14)
[2022-11-01] MEDS: oxyCODONE 5 MG Tab PO PRN ×2 (08:23→14:17)
[2022-11-01] MEDS ORDERED: Escitalopram 10 MG Tab PO SCH (09:00)
[2022-11-01] MEDS ORDERED: Non-Formulary Medication 1 Each (Calcium Carbonate [Calcium] 600 MG Tablet) PO SCH (09:00)
[2022-11-01] MEDS ORDERED: Calcium Carbonate/Vitamin D3 1500 MG-400 Units Tab PO SCH (09:00)
[2022-11-01] MEDS ORDERED: Multivitamins with Iron/Calcium/Folic Acid/Minerals Tab PO SCH (09:00)
[2022-11-01] MEDS ORDERED: DIGOXIN 250 MCG PO SCH (09:00)
[2022-11-01] MEDS ORDERED: Non-Formulary Medication 1 Each (Cholecalciferol (Vitamin D3) [Vitamin D3] 5,000 UNIT Tabl PO SCH (09:00)
[2022-11-01] MEDS ORDERED: Non-Formulary Medication 1 Each (Multivitamin [Multivitamin] 1 EACH Tablet) PO SCH (09:00)
[2022-11-01] MEDS ORDERED: Non-Formulary Medication 1 Each (Rivaroxaban [Xarelto] 20 MG Tablet) PO SCH (09:00)
[2022-11-01] MEDS ORDERED: Cholecalciferol (Vitamin D3) 25 MCG Tab PO SCH (09:00)
[2022-11-01] MEDS ORDERED: Rivaroxaban 10 MG Tab PO SCH (09:00)
[2022-11-01] MEDS ORDERED: Non-Formulary Medication 1 Each (Escitalopram Oxalate [Lexapro] 20 MG Tablet) PO SCH (09:00)
[2022-11-01] MEDS ORDERED: atorvaSTATin 10 MG Tab PO SCH (09:00)
[2022-11-01] MEDS ORDERED: Digoxin 125 MCG Tab PO SCH (13:00)
[2022-11-01 14:52] VITALS: BP 124/65; PULSE 82
== END 2022-11-01 17:22 | disposition home or self-care (01) ==
LOC: JP.SDS 08:11 → JP.2SS 13:14 → JP.SDS 11-01 17:22
PROVIDERS: ATTEND Specialist
DX: M19.012 Primary osteoarthritis, left shoulder (principal); M66.812 Spontaneous rupture of other tendons, left shoulder; I10 Essential (primary) hypertension; I25.2 Old myocardial infarction; G47.33 Obstructive sleep apnea (adult) (pediatric); K21.9 Gastro-esophageal reflux disease without esophagitis; F43.10 Post-traumatic stress disorder, unspecified; R56.9 Unspecified convulsions; Z87.820 Personal history of traumatic brain injury; Z86.718 Personal history of other venous thrombosis and embolism; Z95.0 Presence of cardiac pacemaker; Z87.19 Personal history of other diseases of the digestive system; Z79.82 Long term (current) use of aspirin; Z79.01 Long term (current) use of anticoagulants; Z79.899 Other long term (current) drug therapy
CPT/HCPCS: 23472; 36415; 73020; 80053; 85014; 85018; 85027; 93005; 93010; 97161; 97165; 97535; A9270; C1713; C1776; J0330; J0690; J1100; J2405; J2704; J2710; J3010; J3490; J7030; J7120

== ENCOUNTER 2022-11-29 08:54 | Day surgery (SDC) | payer MEDICARE, OTHER ==
[2022-11-29] MEDS ORDERED: Sodium Chloride 0.9% 10 ML Syringe FLUSH PRN (09:30)
[2022-11-29 10:06] VITALS: BP 116/61; PULSE 67
== END 2022-11-29 10:28 | disposition home or self-care (01) ==
LOC: JP.SDS 08:54
PROVIDERS: ATTEND Ophthalmology
DX: H26.9 Unspecified cataract (principal); I10 Essential (primary) hypertension; K21.9 Gastro-esophageal reflux disease without esophagitis; E66.9 Obesity, unspecified; Z86.718 Personal history of other venous thrombosis and embolism; Z68.39 Body mass index [BMI] 39.0-39.9, adult

== ENCOUNTER 2022-12-13 08:43 | Day surgery (SDC) | payer MEDICARE, OTHER ==
[~2022-12-13 08:43] MED LIST changes: -Bupivacaine 0.5% 50 ML MDV ONE; +Sodium Chloride 0.9% 10 ML Syringe FLUSH PRN
[2022-12-13] MEDS ORDERED: Sodium Chloride 0.9% 10 ML Syringe FLUSH PRN (10:05)
[2022-12-13 10:12] VITALS: BP 147/75; PULSE 66
== END 2022-12-13 10:24 | disposition home or self-care (01) ==
LOC: JP.SDS 08:43
PROVIDERS: ATTEND Ophthalmology
DX: H26.9 Unspecified cataract (principal); E66.9 Obesity, unspecified
CPT/HCPCS: 66984; J3490

== ENCOUNTER 2023-08-19 07:04 | Day surgery (SDC) | payer MEDICARE, OTHER ==
[2023-08-19] MEDS ORDERED: Propofol 200 MG/20 ML SDV ONE ×3 (07:17→10:03)
[2023-08-19] MEDS ORDERED: fentaNYL 100 MCG/2 ML SDV ONE ×2 (07:17→10:00)
[2023-08-19] MEDS ORDERED: Midazolam 1 MG/ML 2 ML SDV ONE (07:17)
[2023-08-19] MEDS ORDERED: Lidocaine 0.5% 50 ML SDV ONE (07:18)
[2023-08-19 07:53] LABS: HEMATOCRIT 34.8 % (38.4-49.7); HEMOGLOBIN 10.6 g/dL (12.9-16.9); MEAN CORPUSCULAR HEMOGLOBIN 25.7 pg (31.6-35.5); MEAN CORPUSCULAR HGB CONC 30.5 g/dL (31.6-35.5); MEAN CORPUSCULAR VOLUME 84.3 fL (81.4-99.0); RED BLOOD CELL COUNT 4.13 M/uL (4.14-5.76); WHITE BLOOD CELL COUNT,WBC 4.7 K/uL (3.2-11.0)
[2023-08-19 08:09] LABS: ANION GAP 8.3 mmol/L (5.0-14.0); CALCIUM 8.4 mg/dL (8.5-10.1); CREATININE 1.5 mg/dL (0.8-1.3); EST CRCL DRUG DOSING (CG) 45.27 mL/min; POTASSIUM,K 4.6 mmol/L (3.6-5.2)
[2023-08-19] MEDS: Lactated Ringers 1,000 ML IV SCH (08:19)
[2023-08-19] MEDS: Nozin Nasal Sanitizer NASBOTH ONE (08:19)
[2023-08-19] MEDS: ceFAZolin 2 GM in Premix Bag 1 BAG IV ONE (09:13)
[2023-08-19] MEDS: Bupivacaine 0.5% 30 ML SDV ONE (09:21)
[2023-08-19 12:49] VITALS: BP 126/76; PULSE 74
== END 2023-08-19 13:00 | disposition home or self-care (01) ==
LOC: JP.SDS 07:04
PROVIDERS: ATTEND Specialist
DX: G56.02 Carpal tunnel syndrome, left upper limb (principal); M18.9 Osteoarthritis of first carpometacarpal joint, unspecified; G56.01 Carpal tunnel syndrome, right upper limb; L72.3 Sebaceous cyst; I12.9 Hypertensive chronic kidney disease with stage 1 through stage 4 chronic kidney disease, or unspecified chronic kidney disease; N18.9 Chronic kidney disease, unspecified; K21.9 Gastro-esophageal reflux disease without esophagitis; E78.5 Hyperlipidemia, unspecified
CPT/HCPCS: 25447; 36415; 64721; 80048; 85027; 93005; A9270; J0665; J0690; J2250; J2704; J3010; J7120; 93016; 93018

== ENCOUNTER 2023-11-18 09:35 | Emergency (ER) | payer MEDICARE, OTHER ==
[2023-11-18 09:53] VITALS: PULSE 79
[2023-11-18 10:01] VITALS: BP 141/78
[2023-11-18 10:40] LABS: BASOPHILS PERCENT AUTO 0.3 % (0.1-1.3); EOSINOPHILS ABSOLUTE AUTO 0.15 K/uL (0.00-0.40); EOSINOPHILS PERCENT AUTO 2.4 % (0.0-5.4); HEMATOCRIT 33.4 % (38.4-49.7); HEMOGLOBIN 10.2 g/dL (12.9-16.9); IMMATURE GRAN PERCENT AUTO 0.2 % (0.0-0.7); LYMPHOCYTES ABSOLUTE AUTO 0.84 K/uL (0.8-3.3); LYMPHOCYTES PERCENT AUTO 13.2 % (11.4-47.7); MEAN CORPUSCULAR HGB CONC 30.5 g/dL (31.6-35.5); MEAN CORPUSCULAR VOLUME 81.9 fL (81.4-99.0); MONOCYTES ABSOLUTE AUTO 0.49 K/uL (0.20-0.90); MONOCYTES PERCENT AUTO 7.7 % (3.3-12.6); NEUTROPHILS ABSOLUTE AUTO 4.84 K/uL (1.0-7.6); NEUTROPHILS PERCENT AUTO 76.2 % (40.0-78.1); PLATELET COUNT,PLT 169 K/uL (130-375); RED BLOOD CELL COUNT 4.08 M/uL (4.14-5.76); WHITE BLOOD CELL COUNT,WBC 6.4 K/uL (3.2-11.0)
[2023-11-18 10:45] LABS: BASOPHILS ABSOLUTE AUTO 0.02 K/uL (0.00-0.10); IMMATURE GRAN ABSOLUTE AUTO 0.01 K/uL (0.00-0.23)
[2023-11-18 10:57] LABS: ANION GAP 8.9 mmol/L (5.0-14.0); BLOOD UREA NITROGEN,BUN 23 mg/dL (7-18); CALCIUM 8.7 mg/dL (8.5-10.1); CARBON DIOXIDE,CO2 25 mmol/L (21-32); CHLORIDE,CL 106 mmol/L (100-108); CREATININE 1.5 mg/dL (0.8-1.3); EST CRCL DRUG DOSING (CG) 45.27 mL/min; ESTIMATED GFR 48 mL/min (>60); GLUCOSE RANDOM 113 mg/dL (74-106); POTASSIUM,K 4.7 mmol/L (3.6-5.2); SODIUM,NA 140 mmol/L (140-148)
[2023-11-18 10:59] LABS: C-REACTIVE PROTEIN < 0.50 mg/dL (<0.50)
[2023-11-18 11:04] LABS: PROTHROMBIN TIME 10.7 sec (9.2-10.6); PTT,PARTIAL THROMBOPLSTIN TIME 28.1 sec (21.8-27.3)
[2023-11-18] MEDS: Sodium Chloride 0.9% 10 ML Syringe FLUSH ONE (12:14)
[2023-11-18] MEDS: Iopamidol 755 Mg/ML 100 ML Bottle IV SCH (12:14)
[2023-11-18] MEDS: Sodium Chloride 0.9% 100 ML IV SCH (12:14)
== END 2023-11-18 13:55 | disposition home or self-care (01) ==
LOC: JP.ED 09:35
DX: M79.89 Other specified soft tissue disorders (principal); I10 Essential (primary) hypertension; I25.10 Atherosclerotic heart disease of native coronary artery without angina pectoris; E66.9 Obesity, unspecified; Z86.73 Personal history of transient ischemic attack (TIA), and cerebral infarction without residual deficits; Z95.0 Presence of cardiac pacemaker; Z86.718 Personal history of other venous thrombosis and embolism; Z79.899 Other long term (current) drug therapy; Z79.82 Long term (current) use of aspirin; Z79.01 Long term (current) use of anticoagulants; Z68.41 Body mass index [BMI] 40.0-44.9, adult
CPT/HCPCS: 36415; 73706; 80048; 85025; 85379; 85610; 85730; 86140; 99284; J3490; Q9967; 99283

== ENCOUNTER 2024-02-06 06:30 | Day surgery (SDC) | payer MEDICARE, OTHER ==
[2024-02-06] MEDS: Sodium Chloride 0.9% 1,000 ML IV SCH (06:52)
[2024-02-06] MEDS ORDERED: fentaNYL 100 MCG/2 ML SDV ONE (08:12)
[2024-02-06] MEDS ORDERED: Propofol 200 MG/20 ML SDV ONE (08:12)
[2024-02-06 10:12] VITALS: BP 142/80; PULSE 81
== END 2024-02-06 10:00 | disposition home or self-care (01) ==
LOC: JP.SDS 06:30
PROVIDERS: ATTEND Surgery
DX: D64.9 Anemia, unspecified (principal)
CPT/HCPCS: 00731; 43239; 88305; 93005; J2704; J3010; J7030

== ENCOUNTER 2024-10-24 14:39 | Emergency (ER) | payer MEDICARE, OTHER ==
[2024-10-24 15:12] VITALS: BP 128/73; PULSE 61
== END 2024-10-24 17:08 | disposition home or self-care (01) ==
LOC: JP.ED 14:39
DX: S50.01XA Contusion of right elbow, initial encounter (principal); I10 Essential (primary) hypertension; E78.00 Pure hypercholesterolemia, unspecified; Z95.0 Presence of cardiac pacemaker; Z79.899 Other long term (current) drug therapy; Z79.82 Long term (current) use of aspirin; W18.39XA Other fall on same level, initial encounter; Y93.89 Activity, other specified
CPT/HCPCS: 73080-RT; 99283